=== PATIENT | female | born 1950 | race Caucasian/White ===

== ENCOUNTER → 2019-09-08 14:18 | Outpatient (BNVA) | payer MEDICARE, SELFPAY | PROVIDERS: Family Provider Registered Nurse; Visit Provider Registered Nurse | DX: I10 Essential (primary) hypertension (principal) | CPT/HCPCS: 80053; 80061; 85025 ==

== ENCOUNTER → 2020-09-06 09:48 | Outpatient (BNVA) | payer MEDICARE, SELFPAY | PROVIDERS: Family Provider Registered Nurse; Visit Provider Registered Nurse | DX: I10 Essential (primary) hypertension (principal) | CPT/HCPCS: 80053; 80061; 85025 ==

== ENCOUNTER → 2020-09-19 10:11 | Outpatient (BNVA) | payer MEDICARE, SELFPAY | PROVIDERS: Family Provider Registered Nurse; Visit Provider Registered Nurse | DX: D72.829 Elevated white blood cell count, unspecified (principal); I10 Essential (primary) hypertension | CPT/HCPCS: 85025 ==

== ENCOUNTER → 2020-09-29 10:30 | Outpatient (BNVA) | payer MEDICARE, SELFPAY | PROVIDERS: Family Provider Registered Nurse; Visit Provider Registered Nurse | DX: D72.829 Elevated white blood cell count, unspecified (principal) | CPT/HCPCS: 80500; 85007; 85027 ==

== ENCOUNTER 2020-10-18 09:27 | Outpatient (CLI) | payer MEDICARE, SELFPAY ==
[2020-10-18 10:07] LABS: Hematocrit 39.9 % (37.0-47.0); Hemoglobin 13.2 g/dL (11.5-15.3); Mean Corpuscular HGB Conc 33.1 g/dL (30.0-36.0); Mean Corpuscular Hemoglobin 30.3 pg (28.0-34.0); Mean Corpuscular Volume 91.7 fL (81-99); Platelet Count 249 10^3/cmm (130-400); Red Blood Count 4.35 10^6/uL (4.1-5.3); Red Cell Distribution Width 12.5 % (12.1-15.1); White Blood Count 19.8 10^3/uL (4.0-10.0)
[2020-10-18 10:46] LABS: Slide Review Slide Review Perform
[2020-10-18 10:52] LABS: Absolute Eosinophils 0.5 10^3/cmm (0.0-0.7); Eosinophils 3 %; Lymphocytes 66 %; Monocytes Absolute 0.2 10^3/cmm (0.1-0.6); Platelet Estimate Normal (Normal); Segmented Neutrophils 20 %; Total Cells Counted 100 (0-100)
[2020-10-18 12:42] LABS: LAB Peripheral Smear Sent for Review
--- NOTE | 2020-10-18 13:38 | ONC CON_ITS ---
Dr. Cano New Patient Note Patient: Maryuri Naylor Unit #: [id number]: 1950 Dicatated By: Solomon Cano M.D.Date of Visit: Oct 18, 2020 Onc MED New Patient/Consult Referring Physician: MARGE ADLER A.P.N. History of Present Illness: Ms. Maryuri Naylor, is a 70-year-old female with no significant past medical history has been following by PMD on a yearly basis and her routine/yearly follow-up labs done on September 06, 2020 showed white blood count 17.2 hemoglobin 12.4 hematocrit 37.4 platelets 254,000 differential shows lymphocytes 67.4% neutrophil 19.7% absolute lymphocyte count was 11,600, lab was repeated on September 19, 2020 showed white blood count 17.2, hemoglobin 12.1 hematocrit 37.8 platelets 240,000 with absolute lymphocyte count 10,400 and repeated lab on September 29, 2020 shows white blood count 16.1 hemoglobin 12.5 hematocrit 37.6 platelets 231,000 with lymphocytes 61%. Patient was referred to hematology clinic for evaluation Patient denies any night sweats, denies any recurrent fever denies any weight loss, denies any peripheral lymphadenopathy or abdominal fullness. Denies any recent viral or bacterial infection. Denies any overseas trip denies any new medication, appetite is good, no nausea or vomiting, no diarrhea or constipation, no jaundice, no melena or hematochezia or hemoptysis or hematemesis., No nosebleeds or gum bleed. Past Medical History: Ms. Naylor's medical history consists of hypertension. Past Surgical History: There is no documented surgical history. Medications: hydroCHLOROthiazide 1 Tablet (of 25 mg) Oral daily, Lisinopril-hydroCHLOROthiazide 1 Tablet (of 20-12.5 mg) Oral daily Allergies: Sulfa Antibiotics Social History: Ms. Naylor is . Ms. Naylor no longer smokes. She has no history of drinking. Family History: Ms. Naylor's mother at age 93. Ms. Naylor's father at age 66: stroke. Ms. Naylor has 2 brothers: 2 alive. Review Of Symptoms: Review of Systems is not available for this patient. Vital Signs: Performed on Oct 18, 2020 11:17: 0, 24.16, 1.64 sq.m, 63 in, 98 %, 96 /min, 17 /min, 141/86 mm(hg) (HIGH), 97.5 F (LOW), and 136.4 lbs (HIGH). Performance Status: 0 - Fully active, able to carry on all predisease activities without restrictions. (ECOG) Physical Examination: ENMT - No mouth sores, no thrush, no jaundice, no cervical/supraclavicular/axillary lymphadenopathy, Respiratory - Lungs are clear to auscultation, Cardiovascular - Regular rate and rhythm of heart, Abdomen - Soft, bowel sounds present, Extremities - No visible edema or rash. Lab/Imaging: Most recent lab results are not available for this patient. Impression: Leukocytosis/lymphocytosis, most likely due to lymphoproliferative disorder like CLL or small lymphocytic lymphoma with cellular phase or atypical lymphocytosis or recovery from viral infection but less likely Essential hypertension Plan: Patient regarding her labs white blood count 19.8 hemoglobin 13.2 hematocrit 39.9 platelets 249,000 absolute lymphocyte count 15,000 Clinically, patient is doing well with no B symptoms, her recently done CBC and repeated today confirmed leukocytosis/lymphocytosis most likely due to lymphoproliferative disorder like CLL or small lymphocytic lymphoma with a cellular phase or recovery from viral infection but less likely. At this point we will proceed with whole blood flow cytometry as on exam there is no evidence of peripheral lymphadenopathy or organomegaly. Patient return to clinic in 2 weeks with CBC and with whole blood flow cytometry to discuss further planning. Signed By: Solomon Cano M.D. <<Signature on File>>
[2020-11-15 09:18] LABS: Miscellaneous Test See Scanned Lab Rpt
== END 2020-10-18 09:28 | disposition home or self-care (01) ==
PROVIDERS: PCP Registered Nurse; Visit Provider Internal Medicine Hematology & Oncology
DX: D72.820 Lymphocytosis (symptomatic) (principal); I10 Essential (primary) hypertension; Z79.899 Other long term (current) drug therapy
CPT/HCPCS: 36415; 80500; 85007; 85025; 88184; 88185; 99205

== ENCOUNTER 2020-11-06 13:22 | Outpatient (CLI) | payer MEDICARE, SELFPAY ==
[2020-11-06 14:10] LABS: Basophils # 0.1 10^3/uL (0.0-0.1); Basophils % 0.6 %; Eosinophils # 0.2 10^3/uL (0.0-0.8); Eosinophils % 0.7 %; Hematocrit 37.5 % (37.0-47.0); Hemoglobin 12.4 g/dL (11.5-15.3); Lymphocytes # 13.2 10^3/uL (0.8-4.8); Lymphocytes % 60.9 %; Mean Corpuscular HGB Conc 33.1 g/dL (30.0-36.0); Mean Corpuscular Hemoglobin 30.8 pg (28.0-34.0); Mean Corpuscular Volume 93.3 fL (81-99); Mean Platelet Volume 10.3 fL (7.4-10.4); Monocytes # 4.1 10^3/uL (0.2-0.9); Monocytes % 18.7 %; Neutrophils % 18.9 %; Nucleated Red Blood Cells % 0 %; Platelet Count 240 10^3/cmm (130-400); Red Blood Count 4.02 10^6/uL (4.1-5.3); Red Cell Distribution Width 12.5 % (12.1-15.1); White Blood Count 21.7 10^3/uL (4.0-10.0)
[2020-11-06 15:13] LABS: Slide Review Slide Review Perform
--- NOTE | 2020-11-06 16:36 | ONC FU_ITS ---
Dr. Cano follow up note Patient: Maryuri Naylor Unit #: [id number]: 1950 Dicatated By: Solomon Cano M.D.Date of Visit:November 06, 2020 Onc Med Follow-up/Prog Note History of Present Illness: Ms. Maryuri Naylor, is a 70-year-old female with no significant past medical history has been following by PMD on a yearly basis and her routine/yearly follow-up labs done on September 06, 2020 showed white blood count 17.2 hemoglobin 12.4 hematocrit 37.4 platelets 254,000 differential shows lymphocytes 67.4% neutrophil 19.7% absolute lymphocyte count was 11,600, lab was repeated on September 19, 2020 showed white blood count 17.2, hemoglobin 12.1 hematocrit 37.8 platelets 240,000 with absolute lymphocyte count 10,400 and repeated lab on September 29, 2020 shows white blood count 16.1 hemoglobin 12.5 hematocrit 37.6 platelets 231,000 with lymphocytes 61%. Patient was referred to hematology clinic for evaluation Whole blood flow cytometry done on October 13, 2020 showed CD5 positive monotypic B-cell population, suggestive of atypical chronic lymphocytic leukemia/small lymphocytic lymphoma Patient denies any night sweats, denies any recurrent fever denies any weight loss, denies any peripheral lymphadenopathy or abdominal fullness. Denies any recent viral or bacterial infection. Denies any overseas trip denies any new medication, appetite is good, no nausea or vomiting, no diarrhea or constipation, no jaundice, no melena or hematochezia or hemoptysis or hematemesis., No nosebleeds or gum bleed. Came for follow-up, denies any specific complaints, no fever chills, no nausea or vomiting no diarrhea or constipation, no night sweats, no weight loss, no recurrent fever, no peripheral lymphadenopathy Medications: hydroCHLOROthiazide 1 Tablet (of 25 mg) Oral daily, Lisinopril-hydroCHLOROthiazide 1 Tablet (of 20-12.5 mg) Oral daily Allergies: Sulfa Antibiotics Review of Systems: Review of Systems is not available for this patient. Vital Signs: Performed on November 06, 2020 14:40 Height - 63.00 in Weight - 138.0 lbs (HIGH) BSA - 1.65 sq.m BMI - 24.45 Temperature - 97.4 F (LOW) Pulse - 77 /min Respiration - 17 /min BP - 115/58 mm(hg) O2 Sat - 98 % Pain - 0 Performance Status: 0 - Fully active, able to carry on all predisease activities without restrictions. (ECOG) Physical Examination: ENMT - No mouth sores, no thrush, no jaundice no cervical lymphadenopathy, Respiratory - Lungs are clear to auscultation, Cardiovascular - Regular rate and rhythm of heart, Abdomen - Soft, bowel sounds present no organomegaly, Extremities - No visible edema or rash. Lab/Imaging: Most recent lab results are not available for this patient. Impression: CD5 positive monotypic B-cell population suggestive of atypical CLL or small lymphocytic lymphoma with cellular phase , Whole blood flow cytometry done on October 13, 2020 showed CD5 positive monotypic B-cell population suggestive of atypical chronic lymphocytic leukemia, mantle cell lymphoma is not favored, hairy cell markers are negative Essential hypertension Plan: Discussed with patient regarding her labs white blood count 21.7 hemoglobin 12.4 hematocrit 37.5 platelets 240,000 absolute lymphocyte count 13,200, whole blood flow cytometry confirmed CD5 positive monotypic B-cell population suggestive of atypical CLL/small lymphocytic lymphoma, mantle cell lymphoma is not favored hairy cell markers are negative. Clinically, patient doing well with no new signs symptom, no B symptoms, no peripheral lymphadenopathy, her whole blood flow cytometry confirmed atypical CLL, at this point ,we will proceed with Staging and prognostic work-up with cytogenetics/CLL prognostic profile including 17p testing and also consider CT scan of neck chest abdomen pelvis and then she will return to clinic in 1 month for further discussion and evaluation. Signed By: Solomon Cano M.D. <<Signature on File>>
== END 2020-11-06 13:23 | disposition home or self-care (01) ==
LOC: ONCMED 13:24
PROVIDERS: PCP Registered Nurse; Visit Provider Internal Medicine Hematology & Oncology
DX: D72.820 Lymphocytosis (symptomatic) (principal); I10 Essential (primary) hypertension; Z79.899 Other long term (current) drug therapy
CPT/HCPCS: 36415; 85025; 99214

== ENCOUNTER 2020-11-24 12:49 | Outpatient (CLI) | payer MEDICARE, SELFPAY ==
--- NOTE | 2020-11-24 13:06 | CT_ITS ---
WS: [id number] CT NECK WITH CONTRAST HISTORY: Leukocytosis. TECHNIQUE: Contiguous 5 mm axial images are performed through the neck with intravenous contrast. Sag ittal and coronal reformats are also submitted. All CT scans at [facility] use at least o ne of these dose optimization techniques: automated exposure control; mA and/or kV adjustment per pat ient size (includes targeted exams where dose is matched to clinical indication); or iterative recons truction. CONTRAST: CONTRAST: Omnipaque 300; 95 mL IV. DLP: 760.58 mGycm COMPARISON: None available. Nasopharynx, oropharynx, hypopharynx and larynx are unremarkable. No soft tissue masses or abnormal e nhancement. Torus tubarius and fossa of Rosenmuller and parapharyngeal fat are normal. There are several small bilateral cervical chain lymph nodes. These lymph nodes are subcentimeter and majority have a normal visible fatty hilum. Lymph nodes are level 1, level 2, level 3 level 4 and le narinder 5. Largest lymph nodes are approximately 6 mm in diameter. Thyroid gland and salivary glands are normally enhancing with no masses. Mild anterior wedging of C7 and T1 and T4. No osteoblastic or osteolytic disease. Visualized portions of the skull base demonstrate no abnormalities. Orbits and globes are within norm al limits. No soft tissue masses. Visualized paranasal sinuses and mastoid air cells are normal. Lung apices are clear. CT/CT neck w con* [id number] IMPRESSION: 1. No neck mass identified. 2. Several small bilateral cervical chain lymph nodes. Lymph node nodes appear nonpathologic.
--- NOTE | 2020-11-24 13:06 | CT_ITS ---
WS: [id number] CT CHEST, ABDOMEN AND PELVIS WITH CONTRAST HISTORY: LEUKOCYTOSIS TECHNIQUE: Contiguous 5 mm axial imaging performed through the chest, abdomen and pelvis with IV cont rast, oral contrast has been provided. Coronal and sagittal reformats chest. Coronal and sagittal ref ormats through the abdomen and pelvis. All CT scans at [facility] use at least one of the se dose optimization techniques: automated exposure control; mA and/or kV adjustment per patient size (includes targeted exams where dose is matched to clinical indication); or iterative reconstruction. CONTRAST: Omnipaque 300; 75 mL IV. DLP: 1976.92 mGycm COMPARISON: None available. Chest CT: Lungs are clear. No mediastinal or hilar adenopathy. Mild atherosclerosis aorta. Normal siz e pulmonary artery. Heart is normal size. No pericardial pleural effusions. No chest wall abnormality. There are a few small benign-appearing axillary lymph nodes which are less than a centimeter. No hiatal hernia. Abdomen CT: Liver, spleen and gallbladder are negative. No splenomegaly. Common bile duct is top norm al at 8 mm at the pancreatic head. Pancreas is otherwise negative. No adrenal mass. No renal obstruct ion or mass. No mesenteric adenopathy or fluid. Mild atherosclerosis aorta with no aneurysm. Normal appendix. Mild diffuse fecal retention no wall thickening or acute inflammatory changes. Pelvic CT: Moderately distended urinary bladder. No free fluid or adenopathy in the pelvis. There is mild thickening of the endometrium towards the fundus. Uterus is small caliber. 00 no osteoblastic or osteolytic bone disease. Small Schmorl's nodes defects are noted at several lev els in the thoracic spine. CT/CT chest abd pel w con* IMPRESSION: 1. No identifiable chest, abdomen or pelvic lymphadenopathy. 2. Normal size spleen. 3. Mildly thickened endometrium. Consider follow-up transvaginal imaging to be tter evaluate the endometrium and uterus. 4. Atherosclerosis aorta.
[2020-11-24] MEDS: iohexol 300 mg/mL 50 mL Btl PO (13:21)
[2020-11-24 13:53] LABS: Blood Urea Nitrogen 19 mg/dL (8-23); Glomerular Filtration Rate 82.7 mL/min (90-130)
[2020-11-24] MEDS: iohexol 300 mg/mL 100 mL Btl IV ×2 (14:36→14:37)
== END 2020-11-24 12:50 | disposition home or self-care (01) ==
LOC: RADWPI 12:51
PROVIDERS: PCP Registered Nurse; Visit Provider Internal Medicine Hematology & Oncology
DX: D72.829 Elevated white blood cell count, unspecified (principal); I70.0 Atherosclerosis of aorta; R93.89 Abnormal findings on diagnostic imaging of other specified body structures
CPT/HCPCS: 70491; 71260; 74177; 82565; 84520; Q9967

== ENCOUNTER 2020-12-21 11:21 | Outpatient (CLI) | payer MEDICARE, SELFPAY ==
[2020-12-21 12:20] LABS: Basophils # 0.1 10^3/uL (0.0-0.1); Basophils % 0.6 %; Eosinophils # 0.1 10^3/uL (0.0-0.8); Eosinophils % 0.8 %; Hematocrit 36.5 % (37.0-47.0); Hemoglobin 12.1 g/dL (11.5-15.3); Lymphocytes # 10.5 10^3/uL (0.8-4.8); Lymphocytes % 62.1 %; Mean Corpuscular HGB Conc 33.2 g/dL (30.0-36.0); Mean Corpuscular Hemoglobin 30.3 pg (28.0-34.0); Mean Corpuscular Volume 91.3 fL (81-99); Mean Platelet Volume 10.2 fL (7.4-10.4); Monocytes # 3.2 10^3/uL (0.2-0.9); Monocytes % 18.8 %; Neutrophils # 2.95 10^3/uL (1.8-7.7); Neutrophils % 17.4 %; Nucleated Red Blood Cells % 0 %; Platelet Count 206 10^3/cmm (130-400); Positive M 1; Red Cell Distribution Width 12.7 % (12.1-15.1); White Blood Count 16.9 10^3/uL (4.0-10.0)
[2020-12-21 12:48] LABS: Alanine Aminotransferase 9 U/L (0-33); Albumin Level 4.2 g/dL (3.5-5.2); Alkaline Phosphatase 85 IU/L (35-105); Anion Gap 13.9 (5-19); Aspartate Amino Transferase 15 U/L (0-32); Blood Urea Nitrogen 20 mg/dL (8-23); Calcium 8.9 mg/dL (8.5-10.5); Carbon Dioxide 27 mmol/L (22-29); Chloride 99 mmol/L (98-107); Globulin 2.3 g/dL (1.3-4.6); Glomerular Filtration Rate 70.9 mL/min (90-130); Glucose 102 mg/dL (65-115); Osmolality Calculated 285 mOsm/kg (285-295); Potassium 3.9 mmol/L (3.5-5.1); Sodium 136 mmol/L (136-145); Total Bilirubin 0.3 mg/dL (0.15-1.2); Total Protein 6.5 g/dL (6.6-8.7)
[2020-12-21 12:52] LABS: Slide Review Slide Review Perform
--- NOTE | 2020-12-21 15:40 | ONC FU_ITS ---
Dr. Cano follow up note Patient: Maryuri Naylor Unit #: [id number]: 1950 Dicatated By: Solomon Cano M.D.Date of Visit:Dec 21, 2020 Onc Med Follow-up/Prog Note History of Present Illness: Ms. Maryuri Naylor, is a 70-year-old female with no significant past medical history has been following by PMD on a yearly basis and her routine/yearly follow-up labs done on September 06, 2020 showed white blood count 17.2 hemoglobin 12.4 hematocrit 37.4 platelets 254,000 differential shows lymphocytes 67.4% neutrophil 19.7% absolute lymphocyte count was 11,600, lab was repeated on September 19, 2020 showed white blood count 17.2, hemoglobin 12.1 hematocrit 37.8 platelets 240,000 with absolute lymphocyte count 10,400 and repeated lab on September 29, 2020 shows white blood count 16.1 hemoglobin 12.5 hematocrit 37.6 platelets 231,000 with lymphocytes 61%. Patient was referred to hematology clinic for evaluation Whole blood flow cytometry done on October 13, 2020 showed CD5 positive monotypic B-cell population, suggestive of atypical chronic lymphocytic leukemia/small lymphocytic lymphoma Patient denies any night sweats, denies any recurrent fever denies any weight loss, denies any peripheral lymphadenopathy or abdominal fullness. Denies any recent viral or bacterial infection. Denies any overseas trip denies any new medication, appetite is good, no nausea or vomiting, no diarrhea or constipation, no jaundice, no melena or hematochezia or hemoptysis or hematemesis., No nosebleeds or gum bleed. CT scan of neck done on November 24, 2020 shows subcentimeter bilateral cervical lymph nodes largest lymph node is 6 mm in diameter and CT scan of chest abdomen pelvis showed no identifiable chest abdomen pelvis lymphadenopathy. Normal-sized spleen. Mildly thickened endometrium Came for follow-up, denies any specific complaints, no fever chills, no nausea or vomiting, no diarrhea or constipation, no melena or hematochezia, no hemoptysis or hematemesis, no night sweats, no weight loss, no peripheral lymphadenopathy, no abdominal fullness Medications: hydroCHLOROthiazide 1 Tablet (of 25 mg) Oral daily, Lisinopril-hydroCHLOROthiazide 1 Tablet (of 20-12.5 mg) Oral daily Allergies: Sulfa Antibiotics Review of Systems: Review of Systems is not available for this patient. Vital Signs: Performed on Dec 21, 2020 13:39 Height - 63.00 in Weight - 138.2 lbs (HIGH) BSA - 1.65 sq.m BMI - 24.48 Temperature - 96.4 F (LOW) Pulse - 93 /min Respiration - 18 /min BP - 114/73 mm(hg) O2 Sat - 98 % Pain - 0 Fatigue - 5 Performance Status: 0 - Fully active, able to carry on all predisease activities without restrictions. (ECOG) Physical Examination: ENMT - No mouth sores, no thrush, no jaundice, no lymphadenopathy, Respiratory - Lungs are clear to auscultation, Cardiovascular - Regular rate and rhythm of heart, Abdomen - Soft, bowel sounds present, Extremities - No visible edema. Lab/Imaging: Most recent lab results are not available for this patient. Impression: CD5 positive monotypic B-cell population suggestive of atypical CLL or small lymphocytic lymphoma with cellular phase , Whole blood flow cytometry done on October 13, 2020 showed CD5 positive monotypic B-cell population suggestive of atypical chronic lymphocytic leukemia, mantle cell lymphoma is not favored, hairy cell markers are negative CT scan of neck chest abdomen pelvis showed shotty subcentimeter bilateral cervical lymphadenopathy, largest is 6 mm., No identifiable chest, abdominal and pelvic lymphadenopathy, spleen is normal size mildly thickened endometrium CLL prognostic profile is pending Essential hypertension Plan: Discussed with patient regarding her labs white blood count 16.9 hemoglobin 12.1 g medical 36.5 platelets 206,000 CMP within normal limits, CT scan of chest abdomen pelvis shows no lymphadenopathy, spleen size normal, CT scan of neck showed shotty subcentimeter bilateral cervical lymphadenopathy and endometrial thickening Clinically, patient doing well with no new signs symptoms, no B symptoms or follow-up CT scan of chest abdomen pelvis shows no central lymphadenopathy no organomegaly CT scan of neck shows bilateral subcentimeter lymphadenopathy. CLL prognostic profile was ordered, somehow was not done previously and again reordered today. Clinically, patient has CLL stage 0 and no further work-up rather observation, she will return to clinic in 4 months with CBC CMP and LDH, patient was advised to call us in case she has recurrent fever, drenching night sweats, weight loss. As far as incidental finding seen on CT scan of chest abdomen pelvis which showed thickening of uterus lining, will refer her to [facility] for evaluation, as per patient she used to follow with [facility] on regular basis tell about 6 years ago. Signed By: Solomon Cano M.D. <<Signature on File>>
[2021-01-10 14:05] LABS: Miscellaneous Test See Scanned Lab Rpt
== END 2020-12-21 11:22 | disposition home or self-care (01) ==
LOC: ONCMED 11:23
PROVIDERS: PCP Registered Nurse; Visit Provider Internal Medicine Hematology & Oncology
DX: C91.10 Chronic lymphocytic leukemia of B-cell type not having achieved remission (principal); I10 Essential (primary) hypertension; Z79.899 Other long term (current) drug therapy; Z92.21 Personal history of antineoplastic chemotherapy
CPT/HCPCS: 36415; 80053; 85025; 88367; 88374; 99214

== ENCOUNTER → 2021-02-21 08:49 | Outpatient (BNVA) | payer MEDICARE, SELFPAY | PROVIDERS: PCP Registered Nurse; Visit Provider Obstetrics & Gynecology | DX: R93.89 Abnormal findings on diagnostic imaging of other specified body structures (principal) | CPT/HCPCS: 76830 ==

== ENCOUNTER 2021-05-09 11:24 | Outpatient (CLI) | payer MEDICARE, SELFPAY ==
[2021-05-09 12:07] LABS: Hematocrit 37.2 % (37.0-47.0); Hemoglobin 12.4 g/dL (11.5-15.3); Mean Corpuscular HGB Conc 33.3 g/dL (30.0-36.0); Mean Corpuscular Hemoglobin 30.5 pg (28.0-34.0); Mean Corpuscular Volume 91.6 fl (81-99); Mean Platelet Volume 9.8 fL (7.4-10.4); Platelet Count 283 10^3/cmm (130-400); Red Blood Count 4.06 10^6/uL (4.1-5.3); Red Cell Distribution Width 12.8 % (12.1-15.1); White Blood Count 22.7 10^3/uL (4.0-10.0)
[2021-05-09 12:56] LABS: Absolute Eosinophils 0.4 10^3/cmm (0.0-0.7); Absolute Segmented Neutrophil 6.1 10/cmm (1.6-7.1); Band Neutrophils Absolute 0.5 10^3/cmm (0.0-1.2); Eosinophils 2 %; Segmented Neutrophils 27 %; Total Cells Counted 100 (0-100)
[2021-05-09 12:57] LABS: Absolute Neutrophil 6.6 10^3/cmm (1.4-6.5); Lymphocytes 53 %; Lymphocytes Absolute 14.3 10^3/cmm (1.2-3.4); Monocytes Absolute 1.1 10^3/cmm (0.1-0.6); Platelet Estimate Normal (Normal)
[2021-05-09 12:58] LABS: Smudge Cells 2+; Tear Drop Cells Trace
[2021-05-09 13:09] LABS: Alanine Aminotransferase 10 U/L (0-33); Albumin Level 4.1 g/dL (3.5-5.2); Alkaline Phosphatase 92 IU/L (35-105); Anion Gap 11.9 (5-19); Aspartate Amino Transferase 14 U/L (0-32); Blood Urea Nitrogen 16 mg/dL (8-23); Calcium 8.8 mg/dL (8.5-10.5); Carbon Dioxide 28 mmol/L (22-29); Chloride 103 mmol/L (98-107); Globulin 2.5 g/dL (1.3-4.6); Glomerular Filtration Rate 61.9 mL/min (90-130); Glucose 99 mg/dL (65-115); Lactate Dehydrogenase 211 U/L (135-214); Osmolality Calculated 289 mOsm/kg (285-295); Potassium 3.9 mmol/L (3.5-5.1); Sodium 139 mmol/L (136-145); Total Bilirubin 0.2 mg/dL (0.15-1.2); Total Protein 6.6 g/dL (6.6-8.7)
--- NOTE | 2021-05-09 16:18 | ONC FU_ITS ---
Dr. Cano follow up note Patient: Maryuri Naylor Unit #: [id number]: 1950 Dicatated By: Solomon Cano M.D.Date of Visit:May 09, 2021 Onc Med Follow-up/Prog Note History of Present Illness: Ms. Maryuri Naylor, is a 70-year-old female with no significant past medical history has been following by PMD on a yearly basis and her routine/yearly follow-up labs done on September 06, 2020 showed white blood count 17.2 hemoglobin 12.4 hematocrit 37.4 platelets 254,000 differential shows lymphocytes 67.4% neutrophil 19.7% absolute lymphocyte count was 11,600, lab was repeated on September 19, 2020 showed white blood count 17.2, hemoglobin 12.1 hematocrit 37.8 platelets 240,000 with absolute lymphocyte count 10,400 and repeated lab on September 29, 2020 shows white blood count 16.1 hemoglobin 12.5 hematocrit 37.6 platelets 231,000 with lymphocytes 61%. Patient was referred to hematology clinic for evaluation Whole blood flow cytometry done on October 13, 2020 showed CD5 positive monotypic B-cell population, suggestive of atypical chronic lymphocytic leukemia/small lymphocytic lymphoma Patient denies any night sweats, denies any recurrent fever denies any weight loss, denies any peripheral lymphadenopathy or abdominal fullness. Denies any recent viral or bacterial infection. Denies any overseas trip denies any new medication, appetite is good, no nausea or vomiting, no diarrhea or constipation, no jaundice, no melena or hematochezia or hemoptysis or hematemesis., No nosebleeds or gum bleed. CT scan of neck done on November 24, 2020 shows subcentimeter bilateral cervical lymph nodes largest lymph node is 6 mm in diameter and CT scan of chest abdomen pelvis showed no identifiable chest abdomen pelvis lymphadenopathy. Normal-sized spleen. Mildly thickened endometrium Came for follow-up, denies any specific complaints, no fever chills, no nausea or vomiting, no diarrhea or constipation, no melena hematochezia, no hemoptysis hematemesis, no jaundice, no night sweats, no weight loss, no recurrent fever, no abdominal fullness Medications: hydroCHLOROthiazide 1 Tablet (of 25 mg) Oral daily, Lisinopril-hydroCHLOROthiazide 1 Tablet (of 20-12.5 mg) Oral daily Allergies: Sulfa Antibiotics Review of Systems: Review of Systems is not available for this patient. Vital Signs: Performed on May 09, 2021 14:59 Height - 63.00 in Weight - 137.6 lbs (LOW) BSA - 1.65 sq.m BMI - 24.37 Temperature - 96.9 F (LOW) Pulse - 88 /min Respiration - 18 /min BP - 120/75 mm(hg) O2 Sat - 98 % Pain - 0 Fatigue - 4 Performance Status: 0 - Fully active, able to carry on all predisease activities without restrictions. (ECOG) Physical Examination: ENMT - No mouth sores, no thrush, no jaundice mild cervical/bilateral axillary lymphadenopathy, Respiratory - Lungs are clear to auscultation, Cardiovascular - Regular rate and rhythm of heart, Abdomen - Soft, bowel sounds present, Extremities - No visible edema. Lab/Imaging: Most recent lab results are not available for this patient. Impression: CD5 positive monotypic B-cell population suggestive of atypical CLL or small lymphocytic lymphoma with cellular phase , Whole blood flow cytometry done on October 13, 2020 showed CD5 positive monotypic B-cell population suggestive of atypical chronic lymphocytic leukemia, mantle cell lymphoma is not favored, hairy cell markers are negative CT scan of neck chest abdomen pelvis showed shotty subcentimeter bilateral cervical lymphadenopathy, largest is 6 mm., No identifiable chest, abdominal and pelvic lymphadenopathy, spleen is normal size mildly thickened endometrium CLL prognostic profile is pending Essential hypertension Plan: Discussed with patient regarding her labs white blood count 22.7 hemoglobin 12.4 g hematocrit 37.2 platelets 283,000 ANC 6600 CMP within normal limits including LDH Clinically, patient doing well with no new signs symptom suggestive of disease progression, her follow-up CBC shows mild lymphocytosis/leukocytosis with normal hemoglobin and platelet count. On exam she has persistent shotty cervical/bilateral axillary lymphadenopathy., Last time her CLL prognostic profile was ordered but it was not done so we will reconsider. She will return to clinic in 3 months with CBC CMP and LDH Patient has seen [facility] [employer] [employer] Dr. Weiss for uterine abnormality, as per patient her Uterine ultrasound was unremarkable and she was told nothing to worry. Signed By: Solomon Cano M.D. <<Signature on File>>
== END 2021-05-09 11:25 | disposition home or self-care (01) ==
LOC: ONCMED 11:26
PROVIDERS: PCP Registered Nurse; Visit Provider Internal Medicine Hematology & Oncology
DX: Z08 Encounter for follow-up examination after completed treatment for malignant neoplasm (principal); Z85.72 Personal history of non-Hodgkin lymphomas; I10 Essential (primary) hypertension; Z79.899 Other long term (current) drug therapy
CPT/HCPCS: 36415; 80053; 81263; 82232; 83615; 85007; 85025; 88184; 88185; 88264; 88271; 88367; 88374; 99214

== ENCOUNTER 2021-08-06 12:53 | Outpatient (CLI) | payer MEDICARE, SELFPAY ==
[2021-08-06 13:48] LABS: Basophils # 0.1 10^3/uL (0.0-0.1); Basophils % 0.5 %; Eosinophils # 0.1 10^3/uL (0.0-0.8); Eosinophils % 0.4 %; Hematocrit 37.2 % (37.0-47.0); Hemoglobin 12.2 g/dL (11.5-15.3); Lymphocytes % 48.8 %; Mean Corpuscular HGB Conc 32.8 g/dL (30.0-36.0); Mean Corpuscular Hemoglobin 30.5 pg (28.0-34.0); Mean Platelet Volume 10.1 fL (7.4-10.4); Monocytes # 7.3 10^3/uL (0.2-0.9); Monocytes % 32.5 %; Neutrophils # 3.84 10^3/uL (1.8-7.7); Nucleated Red Blood Cells % 0 %; Platelet Count 228 10^3/cmm (130-400); Red Cell Distribution Width 12.7 % (12.1-15.1); White Blood Count 22.5 10^3/uL (4.0-10.0)
[2021-08-06 14:12] LABS: Alanine Aminotransferase 13 U/L (0-33); Albumin Level 4.5 g/dL (3.5-5.2); Alkaline Phosphatase 98 IU/L (35-105); Anion Gap 14.3 (5-19); Aspartate Amino Transferase 16 U/L (0-32); Blood Urea Nitrogen 13 mg/dL (8-23); Calcium 8.7 mg/dL (8.5-10.5); Carbon Dioxide 27 mmol/L (22-29); Chloride 100 mmol/L (98-107); Globulin 2.2 g/dL (1.3-4.6); Glucose 93 mg/dL (65-115); Osmolality Calculated 284 mOsm/kg (285-295); Potassium 4.3 mmol/L (3.5-5.1); Sodium 137 mmol/L (136-145); Total Bilirubin 0.2 mg/dL (0.15-1.2); Total Protein 6.7 g/dL (6.6-8.7)
[2021-08-06 14:23] LABS: Slide Review Slide Review Perform
== END 2021-08-06 12:54 | disposition home or self-care (01) ==
LOC: ONCMED 12:57
PROVIDERS: PCP Registered Nurse; Visit Provider Internal Medicine Hematology & Oncology
DX: D72.820 Lymphocytosis (symptomatic) (principal)
CPT/HCPCS: 36415; 80053; 85025

== ENCOUNTER 2021-08-07 11:12 | Outpatient (CLI) | payer MEDICARE, SELFPAY ==
--- NOTE | 2021-08-07 18:03 | ONC FU_ITS ---
Dr. Cano follow up note Patient: Maryuri Naylor Unit #: [id number]: 1950 Dicatated By: Solomon Cano M.D.Date of Visit:Aug 07, 2021 Onc Med Follow-up/Prog Note History of Present Illness: Ms. Maryuri Naylor, is a 71-year-old female with no significant past medical history has been following by PMD on a yearly basis and her routine/yearly follow-up labs done on September 06, 2020 showed white blood count 17.2 hemoglobin 12.4 hematocrit 37.4 platelets 254,000 differential shows lymphocytes 67.4% neutrophil 19.7% absolute lymphocyte count was 11,600, lab was repeated on September 19, 2020 showed white blood count 17.2, hemoglobin 12.1 hematocrit 37.8 platelets 240,000 with absolute lymphocyte count 10,400 and repeated lab on September 29, 2020 shows white blood count 16.1 hemoglobin 12.5 hematocrit 37.6 platelets 231,000 with lymphocytes 61%. 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 Denies any recent viral or bacterial infection. Denies any overseas trip denies any new medication, appetite is good, no nausea or vomiting, no diarrhea or constipation, no jaundice, no melena or hematochezia or hemoptysis or hematemesis., No nosebleeds or gum bleed. CT scan of neck done on November 24, 2020 shows subcentimeter bilateral cervical lymph nodes largest lymph node is 6 mm in diameter and CT scan of chest abdomen pelvis showed no identifiable chest abdomen pelvis lymphadenopathy. Normal-sized spleen. Mildly thickened endometrium Came for follow-up, denies any specific complaints, no fever chills, no nausea or vomiting, no diarrhea constipation, no night sweats, no recurrent fever, no weight loss, no abdominal fullness, no peripheral lymphadenopathy Medications: hydroCHLOROthiazide 1 Tablet (of 25 mg) Oral daily, Lisinopril-hydroCHLOROthiazide 1 Tablet (of 20-12.5 mg) Oral daily Allergies: Sulfa Antibiotics Review of Systems: Review of Systems is not available for this patient. Vital Signs: Performed on Aug 07, 2021 13:56 Height - 63.00 in Weight - 137.6 lbs BSA - 1.65 sq.m BMI - 24.37 Temperature - 97.8 F (LOW) Pulse - 83 /min Respiration - 16 /min BP - 120/72 mm(hg) O2 Sat - 97 % Pain - 0 Fatigue - 5 Performance Status: 0 - Fully active, able to carry on all predisease activities without restrictions. (ECOG) Physical Examination: ENMT - No mouth sores, no thrush, no jaundice, No cervical lymphadenopathy, Respiratory - Lungs are clear to auscultation, Cardiovascular - Regular rate and rhythm of heart, Abdomen - Soft, bowel sounds present, Extremities - No visible edema. Lab/Imaging: Most recent lab results are not available for this patient. Impression: CD5 positive monotypic B-cell population suggestive of atypical CLL or small lymphocytic lymphoma with cellular phase , Whole blood flow cytometry done on October 13, 2020 showed CD5 positive monotypic B-cell population suggestive of atypical chronic lymphocytic leukemia, mantle cell lymphoma is not favored, hairy cell markers are negative CT scan of neck chest abdomen pelvis showed shotty subcentimeter bilateral cervical lymphadenopathy, largest is 6 mm., No identifiable chest, abdominal and pelvic lymphadenopathy, spleen is normal size mildly thickened endometrium CLL prognostic profile confirmed FISH positive for 17p deletion,(Unfavorable) positive for ZAP 70,(Unfavorable) IGVH status, mutated (Favorable) Essential hypertension Plan: Discussed with patient regarding her labs white blood count 22.5, hemoglobin 12.2 hematocrit 37.2 platelets 228,000 CMP within normal limits Clinically, patient doing well with no new signs symptom suggestive of disease progression, no B symptoms, on exam no peripheral lymphadenopathy, no organomegaly, patient's CLL prognostic profile shows 17p deletion and positive for ZAP70, indicating aggressive disease but IGVH status mutated, indicating less aggressive disease or indolent disease. Her follow-up CBC shows stable, isolated mildly elevated leukocytosis/lymphocytosis, with a normal hemoglobin and platelet count and on exam no peripheral lymphadenopathy or organomegaly so we will continue to monitor and she will return to clinic in 6 months with CBC CMP and LDH Signed By: Solomon Cano M.D. <<Signature on File>>
== END 2021-08-07 11:13 | disposition home or self-care (01) ==
LOC: ONCMED 11:15
PROVIDERS: PCP Registered Nurse; Visit Provider Internal Medicine Hematology & Oncology
DX: C91.10 Chronic lymphocytic leukemia of B-cell type not having achieved remission (principal); I10 Essential (primary) hypertension
CPT/HCPCS: 99214

== ENCOUNTER 2022-02-01 11:18 | Oncology outpatient (recurring) (ONCR) | payer MEDICARE, SELFPAY ==
[2022-01-31 14:41] LABS: Alanine Aminotransferase 13 U/L (0-33); Albumin Level 4.1 g/dL (3.5-5.2); Alkaline Phosphatase 101 IU/L (35-105); Anion Gap 10.8 (5-19); Aspartate Amino Transferase 17 U/L (0-32); Blood Urea Nitrogen 18 mg/dL (8-23); Calcium 9.6 mg/dL (8.5-10.5); Carbon Dioxide 30 mmol/L (22-29); Chloride 103 mmol/L (98-107); Globulin 2.8 g/dL (1.3-4.6); Glucose 95 mg/dL (65-115); Lactate Dehydrogenase 154 U/L (135-214); Osmolality Calculated 292 mOsm/kg (285-295); Potassium 3.8 mmol/L (3.5-5.1); Sodium 140 mmol/L (136-145); Total Bilirubin 0.2 mg/dL (0.15-1.2); Total Protein 6.9 g/dL (6.6-8.7)
[2022-01-31 15:30] LABS: Basophils # 0.2 10^3/uL (0.0-0.1); Basophils % 0.5 %; Eosinophils # 0.1 10^3/uL (0.0-0.8); Eosinophils % 0.4 %; Hematocrit 39.7 % (37.0-47.0); Hemoglobin 12.9 g/dL (11.5-15.3); Lymphocytes # 20.1 10^3/uL (0.8-4.8); Lymphocytes % 61.2 %; Mean Corpuscular HGB Conc 32.5 g/dL (30.0-36.0); Mean Corpuscular Hemoglobin 30.2 pg (28.0-34.0); Mean Platelet Volume 10.1 fL (7.4-10.4); Monocytes # 7.1 10^3/uL (0.2-0.9); Monocytes % 21.6 %; Neutrophils # 5.28 10^3/uL (1.8-7.7); Neutrophils % 16.1 %; Nucleated Red Blood Cells % 0 %; Platelet Count 248 10^3/cmm (130-400); Positive M 1; Red Blood Count 4.27 10^6/uL (4.1-5.3); Red Cell Distribution Width 12.6 % (12.1-15.1)
[2022-01-31 17:38] LABS: White Blood Count 32.8 10^3/uL (4.0-10.0)
== END 2022-02-20 23:59 | disposition home or self-care (01) ==
PROVIDERS: PCP Registered Nurse; Visit Provider Internal Medicine Hematology & Oncology
DX: C91.10 Chronic lymphocytic leukemia of B-cell type not having achieved remission; I10 Essential (primary) hypertension
CPT/HCPCS: 36415; 80053; 83615; 85025; 99214; G0463

== ENCOUNTER 2022-08-07 12:31 | Oncology outpatient (recurring) (ONCR) | payer MEDICARE, SELFPAY ==
[2022-08-07 11:25] LABS: Hematocrit 34.5 % (37.0-47.0); Hemoglobin 11.7 g/dL (11.5-15.3); Mean Corpuscular HGB Conc 33.9 g/dL (30.0-36.0); Mean Corpuscular Hemoglobin 30.8 pg (28.0-34.0); Mean Corpuscular Volume 90.8 fl (81-99); Mean Platelet Volume 9.5 fL (7.4-10.4); Platelet Count 176 10^3/cmm (130-400); Red Cell Distribution Width 12.6 % (12.1-15.1); White Blood Count 30.1 10^3/uL (4.0-10.0)
[2022-08-07 11:58] LABS: Alanine Aminotransferase 10 U/L (0-33); Albumin Level 4.1 g/dL (3.5-5.2); Alkaline Phosphatase 107 U/L (35-105); Anion Gap 15.9 (5-19); Aspartate Amino Transferase 24 U/L (0-32); Blood Urea Nitrogen 17 mg/dL (8-23); Calcium 8.7 mg/dL (8.5-10.5); Carbon Dioxide 24 mmol/L (22-29); Chloride 101 mmol/L (98-107); Globulin 2.4 g/dL (1.3-4.6); Glucose 124 mg/dL (65-115); Osmolality Calculated 287 mOsm/kg (285-295); Potassium 3.9 mmol/L (3.5-5.1); Sodium 137 mmol/L (136-145); Total Bilirubin 0.2 mg/dL (0.15-1.2); Total Protein 6.5 g/dL (6.6-8.7)
[2022-08-07 12:09] LABS: Slide Review Slide Review Perform
[2022-08-07 12:10] LABS: Absolute Neutrophil 9.6 10^3/cmm (1.4-6.5); Absolute Segmented Neutrophil 9.6 10/cmm (1.6-7.1); Eosinophils 0 %; Lymphocytes 63 %; Lymphocytes Absolute 19.6 10^3/cmm (1.2-3.4); Monocytes Absolute 0.9 10^3/cmm (0.1-0.6); Platelet Estimate Normal (Normal); Segmented Neutrophils 32 %; Total Cells Counted 100 (0-100)
== END 2022-08-20 23:59 | disposition home or self-care (01) ==
PROVIDERS: Nurse Practitioner Family; PCP Registered Nurse; Visit Provider Internal Medicine Hematology & Oncology
DX: C91.10 Chronic lymphocytic leukemia of B-cell type not having achieved remission (principal)
CPT/HCPCS: 36415; 80053; 85007; 85025; 99214

== ENCOUNTER → 2022-12-19 10:08 | Outpatient (BNVA) | payer MEDICARE, SELFPAY | PROVIDERS: PCP Registered Nurse; Visit Provider Registered Nurse | DX: I10 Essential (primary) hypertension (principal) | CPT/HCPCS: 80053; 80061; 85007; 85025 ==

== ENCOUNTER → 2022-12-31 11:02 | Outpatient (BNVA) | payer MEDICARE, SELFPAY | PROVIDERS: PCP Registered Nurse; Visit Provider Registered Nurse | DX: D72.829 Elevated white blood cell count, unspecified (principal) | CPT/HCPCS: 85007; 85025 ==

== ENCOUNTER 2023-01-23 11:44 | Oncology outpatient (recurring) (ONCR) | payer MEDICARE, SELFPAY ==
[2023-01-23 12:46] LABS: Hematocrit 36.4 % (37.0-47.0); Hemoglobin 11.6 g/dL (11.5-15.3); Mean Corpuscular HGB Conc 31.9 g/dL (30.0-36.0); Mean Corpuscular Hemoglobin 29.5 pg (28.0-34.0); Mean Corpuscular Volume 92.6 fl (81-99); Mean Platelet Volume 9.7 fL (7.4-10.4); Platelet Count 181 10^3/cmm (130-400); Red Blood Count 3.93 10^6/uL (4.1-5.3); Red Cell Distribution Width 12.6 % (12.1-15.1)
[2023-01-23 13:05] LABS: Alanine Aminotransferase 36 U/L (0-33); Alkaline Phosphatase 133 U/L (35-105); Anion Gap 14.9 (5-19); Aspartate Amino Transferase 39 U/L (0-32); Blood Urea Nitrogen 15 mg/dL (8-23); Carbon Dioxide 26 mmol/L (22-29); Chloride 101 mmol/L (98-107); Globulin 2.8 g/dL (1.3-4.6); Glucose 93 mg/dL (65-115); Lactate Dehydrogenase 310 U/L (135-214); Osmolality Calculated 287 mOsm/kg (285-295); Potassium 3.9 mmol/L (3.5-5.1); Sodium 138 mmol/L (136-145); Total Bilirubin 0.2 mg/dL (0.15-1.2); Total Protein 6.8 g/dL (6.6-8.7)
[2023-01-23 13:25] LABS: Slide Review Slide Review Perform; White Blood Count 40.6 10^3/uL (4.0-10.0)
[2023-01-23 13:26] LABS: Absolute Neutrophil 7.3 10^3/cmm (1.4-6.5); Absolute Segmented Neutrophil 7.3 10/cmm (1.6-7.1); Eosinophils 0 %; Lymphocytes 50 %; Lymphocytes Absolute 32.9 10^3/cmm (1.2-3.4); Monocytes Absolute 0.4 10^3/cmm (0.1-0.6); Platelet Estimate Normal (Normal); Segmented Neutrophils 18 %; Total Cells Counted 100 (0-100)
[2023-01-23 13:27] LABS: Smudge Cells 3+
[2023-01-23 17:22] VITALS: BP 124/74; PULSE 96; RESP 17; TEMP 35.9; O2SAT 98
== END 2023-02-20 23:59 | disposition home or self-care (01) ==
PROVIDERS: PCP Registered Nurse; Visit Provider Nurse Practitioner Family
DX: C91.10 Chronic lymphocytic leukemia of B-cell type not having achieved remission (principal)
CPT/HCPCS: 36415; 80053; 83615; 85007; 85025; 99214

== ENCOUNTER → 2023-03-12 10:37 | Outpatient (BNVA) | payer MEDICARE, SELFPAY | PROVIDERS: PCP Registered Nurse; Visit Provider Registered Nurse | DX: I10 Essential (primary) hypertension (principal); R60.9 Edema, unspecified | CPT/HCPCS: 80053; 83880 ==

== ENCOUNTER 2023-03-24 13:19 | Oncology outpatient (recurring) (ONCR) | payer MEDICARE, SELFPAY ==
[2023-03-24 13:24] VITALS: BP 91/51; PULSE 72; RESP 16; TEMP 36.8; O2SAT 97
[2023-03-24 13:40] LABS: Basophils % 0.1 %; Eosinophils # 0.1 10^3/uL (0.0-0.8); Eosinophils % 0.3 %; Hematocrit 31.8 % (36-47); Lymphocytes # 31.2 10^3/uL (0.8-4.8); Lymphocytes % 78.4 %; Mean Corpuscular Hemoglobin 29.9 pg (27-33); Mean Corpuscular Volume 90.6 fl (85-98); Mean Platelet Volume 9.6 fL (7.4-10.4); Monocytes # 4.7 10^3/uL (0.2-0.9); Monocytes % 11.9 %; Neutrophils # 3.62 10^3/uL (1.8-7.7); Neutrophils % 9.1 %; Nucleated Red Blood Cells % 0 %; Platelet Count 212 10^3/cmm (157-399); Red Blood Count 3.51 10^6/uL (3.85-5.65); Red Cell Distribution Width 13.2 % (12.1-15.1)
[2023-03-24 13:58] LABS: Alanine Aminotransferase 19 U/L (0-33); Albumin Level 3.8 g/dL (3.5-5.2); Alkaline Phosphatase 103 U/L (35-105); Anion Gap 15.9 (5-19); Aspartate Amino Transferase 21 U/L (0-32); Blood Urea Nitrogen 44 mg/dL (8-23); Calcium 8.7 mg/dL (8.5-10.5); Carbon Dioxide 24 mmol/L (22-29); Chloride 103 mmol/L (98-107); Globulin 2.8 g/dL (1.3-4.6); Glucose 161 mg/dL (65-115); Lactate Dehydrogenase 186 U/L (135-214); Osmolality Calculated 301 mOsm/kg (285-295); Potassium 4.9 mmol/L (3.5-5.1); Sodium 138 mmol/L (136-145); Total Bilirubin 0.3 mg/dL (0.15-1.2); Total Protein 6.6 g/dL (6.6-8.7)
[2023-03-24 14:17] LABS: Slide Review Slide Review Perform
[2023-03-24 14:19] LABS: White Blood Count 39.76 10^3/uL (3.29-11.43)
== END 2023-04-22 23:59 | disposition home or self-care (01) ==
PROVIDERS: Nurse Practitioner Family; PCP Registered Nurse; Visit Provider Internal Medicine Medical Oncology
DX: C91.10 Chronic lymphocytic leukemia of B-cell type not having achieved remission (principal)
CPT/HCPCS: 36415; 80053; 83615; 85025; 99214

== ENCOUNTER → 2023-03-25 12:22 | Outpatient (BNVA) | payer MEDICARE, SELFPAY | PROVIDERS: PCP Registered Nurse; Referring Provider Registered Nurse; Visit Provider Internal Medicine | DX: R07.9 Chest pain, unspecified (principal); C91.10 Chronic lymphocytic leukemia of B-cell type not having achieved remission; I10 Essential (primary) hypertension; R00.2 Palpitations; Z87.891 Personal history of nicotine dependence; R94.31 Abnormal electrocardiogram [ECG] [EKG] | CPT/HCPCS: 93005; 99204 ==

== ENCOUNTER → 2023-04-08 14:54 | Outpatient (BNVA) | payer MEDICARE, SELFPAY | PROVIDERS: PCP Registered Nurse; Referring Provider Internal Medicine; Visit Provider Internal Medicine | DX: I10 Essential (primary) hypertension (principal); R00.2 Palpitations | CPT/HCPCS: 36415; 80048; 83880 ==

== ENCOUNTER 2023-05-20 14:21 | Outpatient (CLI) | payer MEDICARE, SELFPAY ==
--- NOTE | 2023-05-20 12:00 | PETR_ITS ---
PROCEDURE INFORMATION: Exam: PET/CT Skull Base to Mid-thigh Exam date and time: 05/20/2023 12:57 PM Age: 72 years old Clinical indication: Condition or disease; Primary cancer: Chronic lymphocytic leukemia not having achieved remission; Follow-up oncological assessment; Additional info: [facility] LABS AND CLINICAL REPORTS: Glucose: 107 mg/dl Treatment strategy for malignancy (PET staging): Restaging (PS) TECHNIQUE: Imaging protocol: Following at least four-hour fasting and following the injection of radiopharmaceutical, low dose CT images were obtained. Then, PET images were obtained. Attenuation corrected images were constructed using the CT scan. Fused images of PET and CT were reviewed. The standardized uptake values (SUV) reported below are maximum values within a region of interest, expressed in gm/ml. Exam includes orbital meatal line to mid-thigh. Radiopharmaceutical: 12.41 mCi F-18 FDG (Fluorodeoxyglucose), IV. Time of imaging post radiopharmaceutical administration: 1 hour Injection site: site COMPARISON: CT chest abdpel w/*[id number] 11/24/2020 2:33 PM FINDINGS: Brain: Visualized brain has normal physiologic uptake. Pharynx: No abnormal uptake. Larynx: No abnormal uptake. Lungs, pleura and trachea: No abnormal uptake. Heart: Normal physiologic uptake. Mediastinal space: No abnormal uptake. Liver: SUV max in the liver is 2.9. Gallbladder and bile ducts: No abnormal uptake. Pancreas: No abnormal uptake. Spleen: The spleen is enlarged to 14.6 cm. This is larger than the previous study where it measured 10 cm. No focal abnormal splenic uptake is seen. Adrenal glands: No abnormal uptake. Kidneys and ureters: Normal physiologic uptake. Stomach and bowel: No abnormal uptake. Vasculature: Ectatic ascending aorta to 3.8 cm is unchanged. Lymph nodes: There are multiple mildly prominent bilateral cervical chain lymph nodes present without significant uptake. There is a lymph node in right level 2 on series 3, image number 33 measuring 7 mm short axis by 11 mm long axis with mild uptake, SUV maximum measures 2.8 (Deauville score of 3). Multiple subcentimeter bilateral retropectoral and axillary lymph nodes are similar to the previous study without significant uptake on PET. Index node for example left axilla series 3, image 77 measures 0.8 x 0.9 cm with SUV maximum of 1.6. Subcentimeter mediastinal nodes are also unchanged. Low-grade uptake is present in the a right paratracheal node measuring 0.6 x 0.9 cm on series 3, image 77 with SUV maximum of 2.4 (Deauville score of 3). No significant abdominal or pelvic lymphadenopathy is seen. Bones/joints: Chronic mild mid to lower thoracic compression fracture deformities are unchanged. No suspicious bony lesion is seen. Soft tissues: See Lymph nodes finding. Other findings: Blood pool uptake: SUV max is 2.2. PET/[facility] SUBSEQ [id number] IMPRESSION: 1. Mildly prominent bilateral cervical chain lymph nodes with low-grade uptake in a right level 2 node. Similarly there are mildly prominent lymph nodes in the bilateral axillary region and mediastinum which are similar to the comparison CT chest with low-grade uptake (Deauville scores of 3). 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 Continued attention on follow-up recommended. 2. Splenomegaly without significant splenic uptake increased in size since previous.
== END 2023-05-20 14:22 | disposition home or self-care (01) ==
LOC: RAD 14:21
PROVIDERS: PCP Registered Nurse; Visit Provider Nurse Practitioner Family
DX: C91.10 Chronic lymphocytic leukemia of B-cell type not having achieved remission (principal); R16.1 Splenomegaly, not elsewhere classified
CPT/HCPCS: 78815; A9552

== ENCOUNTER 2023-05-28 11:25 | Oncology outpatient (recurring) (ONCR) | payer MEDICARE, SELFPAY ==
[2023-05-28 12:00] LABS: Reticulocyte % 0.9 % (0.5-2.0)
[2023-05-28 12:01] LABS: Mean Corpuscular HGB Conc 31.6 g/dL (30-55); Mean Corpuscular Hemoglobin 28.8 pg (27-33); Mean Corpuscular Volume 91.2 fl (85-98); Mean Platelet Volume 9.2 fL (7.4-10.4); Platelet Count 161 10^3/cmm (157-399); Red Blood Count 3.51 10^6/uL (3.85-5.65); Red Cell Distribution Width 13.3 % (12.1-15.1)
[2023-05-28 12:21] LABS: Alanine Aminotransferase 11 U/L (0-33); Alkaline Phosphatase 123 U/L (35-105); Anion Gap 15.3 (5-19); Aspartate Amino Transferase 19 U/L (0-32); Blood Urea Nitrogen 31 mg/dL (8-23); Calcium 8.9 mg/dL (8.5-10.5); Carbon Dioxide 24 mmol/L (22-29); Chloride 104 mmol/L (98-107); Globulin 3.1 g/dL (1.3-4.6); Glucose 116 mg/dL (65-115); Iron 109 ug/dL (37-145); Lactate Dehydrogenase 150 U/L (135-214); Osmolality Calculated 296 mOsm/kg (285-295); Percent Saturation 68.1 % (20-50); Potassium 4.3 mmol/L (3.5-5.1); Sodium 139 mmol/L (136-145); Total Bilirubin 0.3 mg/dL (0.15-1.2); Total Iron Binding Capacity 160 mcg/dl; Total Protein 7.1 g/dL (6.6-8.7); Unsaturated Iron Binding 51 ug/dL (112-347)
[2023-05-28 12:35] LABS: Vitamin B12 510 pg/mL (232-1245)
[2023-05-28 12:45] LABS: White Blood Count 36.57 10^3/uL (3.29-11.43)
[2023-05-28 12:47] LABS: Slide Review Slide Review Perform; Total Cells Counted 100 (0-100)
[2023-05-28 12:55] LABS: Absolute Eosinophils 0.4 10^3/cmm (0.0-0.7); Absolute Neutrophil 6.9 10^3/cmm (1.4-6.5); Absolute Segmented Neutrophil 6.9 10/cmm (1.6-7.1); Eosinophils 1 %; Lymphocytes 39 %; Lymphocytes Absolute 29.3 10^3/cmm (1.2-3.4); Platelet Estimate Decreased (Normal); Segmented Neutrophils 19 %
== END 2023-06-22 23:59 | disposition home or self-care (01) ==
PROVIDERS: Internal Medicine Medical Oncology; PCP Registered Nurse; Visit Provider Internal Medicine Hematology & Oncology
DX: C91.10 Chronic lymphocytic leukemia of B-cell type not having achieved remission (principal); Z79.899 Other long term (current) drug therapy
CPT/HCPCS: 36415; 80053; 82607; 83010; 83540; 83550; 83615; 85007; 85025; 85045; 99214

== ENCOUNTER 2023-06-24 15:10 | Oncology outpatient (recurring) (ONCR) | payer MEDICARE, SELFPAY ==
[2023-06-24 15:33] LABS: Hematocrit 33.1 % (36-47); Mean Corpuscular Hemoglobin 29.4 pg (27-33); Mean Corpuscular Volume 91.7 fl (85-98); Mean Platelet Volume 8.9 fL (7.4-10.4); Platelet Count 179 10^3/cmm (157-399); Red Blood Count 3.61 10^6/uL (3.85-5.65); Red Cell Distribution Width 13.8 % (12.1-15.1)
[2023-06-24 15:49] LABS: White Blood Count 59.71 10^3/uL (3.29-11.43)
[2023-06-24 15:50] LABS: Alanine Aminotransferase 21 U/L (0-33); Albumin Level 4.2 g/dL (3.5-5.2); Alkaline Phosphatase 157 U/L (35-105); Anion Gap 16.5 (5-19); Aspartate Amino Transferase 24 U/L (0-32); Blood Urea Nitrogen 35 mg/dL (8-23); Calcium 9.5 mg/dL (8.5-10.5); Carbon Dioxide 24 mmol/L (22-29); Chloride 102 mmol/L (98-107); Globulin 3.6 g/dL (1.3-4.6); Glucose 104 mg/dL (65-115); Lactate Dehydrogenase 160 U/L (135-214); Osmolality Calculated 292 mOsm/kg (285-295); Potassium 5.5 mmol/L (3.5-5.1); Sodium 137 mmol/L (136-145); Total Bilirubin 0.3 mg/dL (0.15-1.2); Total Protein 7.8 g/dL (6.6-8.7)
[2023-06-24 15:52] LABS: Slide Review Slide Review Perform
[2023-06-24 15:53] LABS: Total Cells Counted 100 (0-100)
[2023-06-24 15:58] LABS: Absolute Neutrophil 5.4 10^3/cmm (1.4-6.5); Absolute Segmented Neutrophil 5.4 10/cmm (1.6-7.1); Eosinophils 0 %; Lymphocytes 53 %; Lymphocytes Absolute 54.3 10^3/cmm (1.2-3.4); Platelet Estimate Decreased (Normal); Segmented Neutrophils 9 %
== END 2023-07-23 23:59 | disposition home or self-care (01) ==
PROVIDERS: Internal Medicine Medical Oncology; PCP Registered Nurse; Visit Provider Internal Medicine Hematology & Oncology
DX: C91.10 Chronic lymphocytic leukemia of B-cell type not having achieved remission (principal); Z79.899 Other long term (current) drug therapy
CPT/HCPCS: 36415; 80053; 83615; 85007; 85025; 99214

== ENCOUNTER 2023-09-17 08:00 | Oncology outpatient (recurring) (ONCR) | payer MEDICARE, SELFPAY ==
[2023-08-27 12:55] LABS: Reticulocyte % 1.3 % (0.5-2.0)
[2023-08-27 12:56] LABS: Hematocrit 30.6 % (36-47); Mean Corpuscular HGB Conc 31.7 g/dL (30-55); Mean Corpuscular Hemoglobin 30.1 pg (27-33); Mean Platelet Volume 9.1 fL (7.4-10.4); Platelet Count 219 10^3/cmm (157-399); Red Blood Count 3.22 10^6/uL (3.85-5.65); Red Cell Distribution Width 13.2 % (12.1-15.1)
[2023-08-27 13:20] LABS: White Blood Count 63.74 10^3/uL (3.29-11.43)
[2023-08-27 13:24] LABS: Alanine Aminotransferase 8 U/L (0-33); Albumin Level 3.9 g/dL (3.5-5.2); Alkaline Phosphatase 135 U/L (35-105); Anion Gap 15.4 (5-19); Aspartate Amino Transferase 17 U/L (0-32); Blood Urea Nitrogen 30 mg/dL (8-23); Calcium 8.9 mg/dL (8.5-10.5); Carbon Dioxide 24 mmol/L (22-29); Chloride 102 mmol/L (98-107); Ferritin 270 ng/mL (15-150); Globulin 3.4 g/dL (1.3-4.6); Glucose 91 mg/dL (65-115); Iron 74 ug/dL (37-145); Lactate Dehydrogenase 252 U/L (135-214); Osmolality Calculated 288 mOsm/kg (285-295); Potassium 5.4 mmol/L (3.5-5.1); Sodium 136 mmol/L (136-145); Total Bilirubin 0.2 mg/dL (0.15-1.2); Total Iron Binding Capacity 172 mcg/dl; Total Protein 7.3 g/dL (6.6-8.7); Unsaturated Iron Binding 98 ug/dL (112-347)
[2023-08-27 13:25] LABS: Slide Review Slide Review Perform
[2023-08-27 13:26] LABS: Absolute Neutrophil 9.6 10^3/cmm (1.4-6.5); Absolute Segmented Neutrophil 9.6 10/cmm (1.6-7.1); Eosinophils 0 %; Lymphocytes 64 %; Lymphocytes Absolute 52.3 10^3/cmm (1.2-3.4); Monocytes Absolute 1.9 10^3/cmm (0.1-0.6); Platelet Estimate Normal (Normal); Segmented Neutrophils 15 %; Total Cells Counted 100 (0-100)
[2023-09-17 08:14] VITALS: BP 112/74; PULSE 66; RESP 16; TEMP 36.6; O2SAT 98
[2023-09-17 08:24] LABS: Hematocrit 29.8 % (36-47); Mean Corpuscular HGB Conc 31.9 g/dL (30-55); Mean Corpuscular Hemoglobin 30.2 pg (27-33); Mean Corpuscular Volume 94.6 fl (85-98); Mean Platelet Volume 9.2 fL (7.4-10.4); Platelet Count 169 10^3/cmm (157-399); Red Blood Count 3.15 10^6/uL (3.85-5.65); Red Cell Distribution Width 13.2 % (12.1-15.1)
[2023-09-17 08:41] LABS: Alanine Aminotransferase 11 U/L (0-33); Albumin Level 3.8 g/dL (3.5-5.2); Alkaline Phosphatase 134 U/L (35-105); Anion Gap 17.1 (5-19); Aspartate Amino Transferase 18 U/L (0-32); Blood Urea Nitrogen 38 mg/dL (8-23); Calcium 8.8 mg/dL (8.5-10.5); Carbon Dioxide 22 mmol/L (22-29); Chloride 101 mmol/L (98-107); Globulin 3.6 g/dL (1.3-4.6); Glucose 127 mg/dL (65-115); Lactate Dehydrogenase 137 U/L (135-214); Osmolality Calculated 293 mOsm/kg (285-295); Potassium 4.1 mmol/L (3.5-5.1); Sodium 136 mmol/L (136-145); Total Bilirubin 0.2 mg/dL (0.15-1.2); Total Protein 7.4 g/dL (6.6-8.7)
[2023-09-17 09:05] LABS: Creatinine Clr Calc Pharmacy 31.0891
[2023-09-17 09:15] LABS: White Blood Count 52.28 10^3/uL (3.29-11.43)
[2023-09-17 09:20] LABS: Absolute Eosinophils 0.5 10^3/cmm (0.0-0.7); Absolute Neutrophil 4.7 10^3/cmm (1.4-6.5); Absolute Segmented Neutrophil 4.7 10/cmm (1.6-7.1); Eosinophils 1 %; Lymphocytes 76 %; Lymphocytes Absolute 44.4 10^3/cmm (1.2-3.4); Monocytes Absolute 2.6 10^3/cmm (0.1-0.6); Platelet Estimate Normal (Normal); Segmented Neutrophils 9 %; Slide Review Slide Review Perform; Total Cells Counted 100 (0-100)
[2023-09-17] MEDS: acetaminophen 325 mg Tablet 650 MG PO (10:44)
[2023-09-17] MEDS: sodium chloride 0.9% 250 ML 75 ML IV (10:45)
[2023-09-17] MEDS: diphenhydrAMINE 50 mg/mL SDV 1mL IVP (10:48)
[2023-09-17] MEDS: dexamethasone 20 MG in sodium chloride 0.9% 50 ML 188 MG IV (10:55)
[2023-09-17] MEDS: obinutuzumab 100 MG in sodium chloride 0.9% (100 ml) 100 ML 26 MG IV (11:24)
[2023-09-17 12:20] VITALS: BP 92/59; PULSE 77; O2SAT 99
[2023-09-17 16:01] VITALS: BP 100/62; PULSE 86; RESP 16; TEMP 37.1; O2SAT 96
== END 2023-09-17 23:59 | disposition home or self-care (01) ==
PROVIDERS: Nurse Practitioner Family; PCP Registered Nurse; Visit Provider Internal Medicine Medical Oncology
DX: D50.8 Other iron deficiency anemias (principal); C91.10 Chronic lymphocytic leukemia of B-cell type not having achieved remission; Z79.899 Other long term (current) drug therapy; Z53.9 Procedure and treatment not carried out, unspecified reason
CPT/HCPCS: 36415; 80053; 82728; 83010; 83540; 83550; 83615; 85007; 85025; 85045; 96367; 96375; 96413; 96415; 99214; 99215; J1100; J1200; J7050; J9301

== ENCOUNTER 2023-09-18 09:23 | Oncology outpatient (recurring) (ONCR) | payer MEDICARE, SELFPAY ==
[2023-09-18] VITALS (9 sets, daily range): BP systolic 107–127; BP diastolic 62–79; PULSE 64–97; RESP 16–18; TEMP 36.7–37.1; O2SAT 94–99
[2023-09-18] MEDS: sodium chloride 0.9% 250 ML 75 ML IV (10:17)
[2023-09-18] MEDS: diphenhydrAMINE 50 mg/mL SDV 1mL IVP (10:22)
[2023-09-18] MEDS: acetaminophen 325 mg Tablet 650 MG PO (10:25)
[2023-09-18] MEDS: dexamethasone 20 MG in sodium chloride 0.9% 50 ML 188 MG IV (10:28)
[2023-09-18] MEDS: obinutuzumab 900 MG in sodium chloride 0.9%(non-DEHP) 250 ML 9.69999999999999929 MG IV (11:19)
== END 2023-09-21 23:59 | disposition home or self-care (01) ==
PROVIDERS: PCP Registered Nurse; Visit Provider Internal Medicine Medical Oncology
DX: C91.10 Chronic lymphocytic leukemia of B-cell type not having achieved remission; Z53.9 Procedure and treatment not carried out, unspecified reason
CPT/HCPCS: 96367; 96375; 96413; 96415; J1100; J1200; J7050; J9301

== ENCOUNTER 2023-10-06 08:45 | Oncology outpatient (recurring) (ONCR) | payer MEDICARE, SELFPAY ==
[2023-09-24 09:02] VITALS: BP 96/62; PULSE 87; RESP 16; TEMP 36.6; O2SAT 98
[2023-09-24 09:05] LABS: Basophils % 0.5 %; Eosinophils # 0.2 10^3/uL (0.0-0.8); Hematocrit 29.5 % (36-47); Lymphocytes # 0.9 10^3/uL (0.8-4.8); Lymphocytes % 39.7 %; Mean Corpuscular HGB Conc 32.5 g/dL (30-55); Mean Corpuscular Volume 92.2 fl (85-98); Monocytes # 0.4 10^3/uL (0.2-0.9); Monocytes % 17.3 %; Nucleated Red Blood Cells % 0 %; Platelet Count 102 10^3/cmm (157-399); Red Cell Distribution Width 13.2 % (12.1-15.1); White Blood Count 2.14 10^3/uL (3.29-11.43)
[2023-09-24 09:22] LABS: Neutrophils # 0.75 10^3/uL (1.8-7.7)
[2023-09-24 09:25] LABS: Alanine Aminotransferase 58 U/L (0-33); Albumin Level 3.6 g/dL (3.5-5.2); Alkaline Phosphatase 106 U/L (35-105); Anion Gap 13.7 (5-19); Aspartate Amino Transferase 39 U/L (0-32); Blood Urea Nitrogen 39 mg/dL (8-23); Calcium 8.8 mg/dL (8.5-10.5); Carbon Dioxide 21 mmol/L (22-29); Chloride 103 mmol/L (98-107); Creatinine Clr Calc Pharmacy 29.0164; Globulin 3.2 g/dL (1.3-4.6); Glucose 111 mg/dL (65-115); Osmolality Calculated 286 mOsm/kg (285-295); Potassium 4.7 mmol/L (3.5-5.1); Sodium 133 mmol/L (136-145); Total Bilirubin 0.3 mg/dL (0.15-1.2); Total Protein 6.8 g/dL (6.6-8.7)
[2023-09-24] MEDS: sodium chloride 0.9% 250 ML 75 ML IV (10:07)
[2023-09-24] MEDS: acetaminophen 325 mg Tablet 650 MG PO (10:07)
[2023-09-24] MEDS: diphenhydrAMINE 50 mg/mL SDV 1mL IVP (10:07)
[2023-09-24] MEDS: dexamethasone 20 MG in sodium chloride 0.9% 50 ML 188 MG IV (10:13)
[2023-09-24] MEDS: [UNRECOGNIZED DRUG - REMARK] 32.5 MG IV (10:53)
[2023-09-24 10:55] VITALS: BP 95/60; PULSE 73; RESP 16; TEMP 36.4; O2SAT 98
[2023-09-24 11:30] VITALS: BP 94/53; PULSE 73; RESP 16; TEMP 36.7; O2SAT 99
[2023-09-24 12:00] VITALS: BP 95/56; PULSE 78; RESP 16; TEMP 36.3; O2SAT 97
[2023-09-24 12:37] VITALS: BP 94/54; PULSE 85; RESP 16; TEMP 36.4; O2SAT 98
[2023-09-24 14:28] VITALS: BP 94/58; PULSE 82; TEMP 36.4; O2SAT 97
[2023-09-29] MEDS: famotidine 20 mg/2 mL INJ IVP (10:26)
[2023-09-29 10:32] VITALS: BP 93/58; PULSE 80; RESP 16; TEMP 36.6; O2SAT 97
[2023-09-29 11:08] VITALS: BP 98/64; PULSE 80; RESP 18; TEMP 36.7; O2SAT 95
[2023-10-06 08:58] LABS: Basophils % 0.2 %; Eosinophils % 0.5 %; Hematocrit 29.9 % (36-47); Lymphocytes # 2.3 10^3/uL (0.8-4.8); Lymphocytes % 27.9 %; Mean Corpuscular HGB Conc 33.1 g/dL (30-55); Mean Corpuscular Hemoglobin 30.6 pg (27-33); Mean Corpuscular Volume 92.3 fl (85-98); Mean Platelet Volume 9.2 fL (7.4-10.4); Monocytes # 0.4 10^3/uL (0.2-0.9); Monocytes % 5.3 %; Neutrophils # 5.44 10^3/uL (1.8-7.7); Neutrophils % 65.6 %; Nucleated Red Blood Cells % 0 %; Platelet Count 248 10^3/cmm (157-399); Red Blood Count 3.24 10^6/uL (3.85-5.65); Red Cell Distribution Width 13.8 % (12.1-15.1); White Blood Count 8.29 10^3/uL (3.29-11.43)
[2023-10-06 09:15] LABS: Alanine Aminotransferase 12 U/L (0-33); Albumin Level 3.4 g/dL (3.5-5.2); Alkaline Phosphatase 82 U/L (35-105); Aspartate Amino Transferase 11 U/L (0-32); Blood Urea Nitrogen 45 mg/dL (8-23); Calcium 8.5 mg/dL (8.5-10.5); Carbon Dioxide 21 mmol/L (22-29); Chloride 104 mmol/L (98-107); Glucose 127 mg/dL (65-115); Osmolality Calculated 293 mOsm/kg (285-295); Sodium 135 mmol/L (136-145); Total Bilirubin 0.2 mg/dL (0.15-1.2); Total Protein 6.4 g/dL (6.6-8.7)
[2023-10-06 09:17] LABS: Creatinine Clr Calc Pharmacy 28.7294
[2023-10-06 09:18] LABS: Anion Gap 14.1 (5-19); Potassium 4.1 mmol/L (3.5-5.1)
== END 2023-10-06 23:59 | disposition home or self-care (01) ==
PROVIDERS: Nurse Practitioner Family; PCP Registered Nurse; Visit Provider Internal Medicine Medical Oncology
DX: C91.10 Chronic lymphocytic leukemia of B-cell type not having achieved remission (principal); R21 Rash and other nonspecific skin eruption; Z79.899 Other long term (current) drug therapy; Z53.9 Procedure and treatment not carried out, unspecified reason
CPT/HCPCS: 80053; 85025; 96365; 96366; 96367; 96375; 99214; J1100; J1200; J3490; J7050; J9301

== ENCOUNTER 2023-10-15 08:17 | Oncology outpatient (recurring) (ONCR) | payer MEDICARE, SELFPAY ==
[2023-10-15 09:01] LABS: Basophils % 0.6 %; Eosinophils # 0.1 10^3/uL (0.0-0.8); Eosinophils % 1.1 %; Hematocrit 30.4 % (36-47); Lymphocytes # 1.4 10^3/uL (0.8-4.8); Lymphocytes % 26.6 %; Mean Corpuscular HGB Conc 32.9 g/dL (30-55); Mean Corpuscular Hemoglobin 30.7 pg (27-33); Mean Corpuscular Volume 93.3 fl (85-98); Mean Platelet Volume 9.3 fL (7.4-10.4); Monocytes # 0.4 10^3/uL (0.2-0.9); Monocytes % 6.9 %; Neutrophils # 3.38 10^3/uL (1.8-7.7); Neutrophils % 64.6 %; Nucleated Red Blood Cells % 0 %; Platelet Count 137 10^3/cmm (157-399); Red Blood Count 3.26 10^6/uL (3.85-5.65); Red Cell Distribution Width 14.6 % (12.1-15.1); White Blood Count 5.23 10^3/uL (3.29-11.43)
[2023-10-15 09:31] LABS: Alanine Aminotransferase 12 U/L (0-33); Albumin Level 3.6 g/dL (3.5-5.2); Alkaline Phosphatase 87 U/L (35-105); Anion Gap 16.2 (5-19); Aspartate Amino Transferase 14 U/L (0-32); Blood Urea Nitrogen 45 mg/dL (8-23); Calcium 8.8 mg/dL (8.5-10.5); Carbon Dioxide 24 mmol/L (22-29); Chloride 101 mmol/L (98-107); Glucose 97 mg/dL (65-115); Osmolality Calculated 295 mOsm/kg (285-295); Potassium 4.2 mmol/L (3.5-5.1); Sodium 137 mmol/L (136-145); Total Bilirubin 0.3 mg/dL (0.15-1.2); Total Protein 6.6 g/dL (6.6-8.7)
[2023-10-15] MEDS: sodium chloride 0.9% 250 ML 75 ML IV (10:26)
[2023-10-15] MEDS: methylPREDNISolone sod succ 40 mg/mL INJ IVP (10:26)
[2023-10-15] MEDS: acetaminophen 325 mg Tablet 650 MG PO (10:28)
[2023-10-15] MEDS: diphenhydrAMINE 50 mg/mL SDV 1mL IVP (10:31)
[2023-10-15] MEDS: obinutuzumab 1,000 MG in sodium chloride 0.9% 250 ML 30 MG IV (11:35)
[2023-10-15 11:41] VITALS: BP 89/57; PULSE 75; RESP 16; TEMP 36.4; O2SAT 97
[2023-10-15 12:12] VITALS: BP 87/56; PULSE 74; RESP 16; O2SAT 98
[2023-10-15 12:45] VITALS: BP 92/59; PULSE 75; RESP 16; TEMP 36.4; O2SAT 95
[2023-10-15 13:15] VITALS: BP 93/61; PULSE 68; RESP 16; O2SAT 96
[2023-10-15 14:02] VITALS: BP 89/57; PULSE 76; RESP 16; TEMP 36.4; O2SAT 97
[2023-10-15 15:14] VITALS: BP 95/61; PULSE 80; RESP 16; TEMP 36.6; O2SAT 97
== END 2023-10-21 23:59 | disposition home or self-care (01) ==
PROVIDERS: Nurse Practitioner Family; PCP Registered Nurse; Visit Provider Internal Medicine Medical Oncology
DX: C91.10 Chronic lymphocytic leukemia of B-cell type not having achieved remission (principal); D50.8 Other iron deficiency anemias; Z79.899 Other long term (current) drug therapy
CPT/HCPCS: 80053; 85025; 96375; 96413; 96415; 99214; J1200; J2919; J7050; J9301; J9999

== ENCOUNTER 2023-11-12 08:00 | Oncology outpatient (recurring) (ONCR) | payer MEDICARE, SELFPAY ==
[2023-10-22 10:37] LABS: Basophils % 0.7 %; Eosinophils % 0.7 %; Hematocrit 28.9 % (36-47); Lymphocytes % 35.8 %; Mean Corpuscular HGB Conc 33.6 g/dL (30-55); Mean Corpuscular Hemoglobin 30.7 pg (27-33); Mean Corpuscular Volume 91.5 fl (85-98); Mean Platelet Volume 9.1 fL (7.4-10.4); Monocytes # 0.2 10^3/uL (0.2-0.9); Monocytes % 7.7 %; Neutrophils % 54.7 %; Nucleated Red Blood Cells % 0 %; Platelet Count 131 10^3/cmm (157-399); Red Blood Count 3.16 10^6/uL (3.85-5.65); Red Cell Distribution Width 14.6 % (12.1-15.1); White Blood Count 2.74 10^3/uL (3.29-11.43)
[2023-10-22 10:49] LABS: Alanine Aminotransferase 17 U/L (0-33); Albumin Level 3.8 g/dL (3.5-5.2); Alkaline Phosphatase 105 U/L (35-105); Anion Gap 16.2 (5-19); Aspartate Amino Transferase 18 U/L (0-32); Blood Urea Nitrogen 44 mg/dL (8-23); Calcium 8.9 mg/dL (8.5-10.5); Carbon Dioxide 25 mmol/L (22-29); Chloride 97 mmol/L (98-107); Globulin 2.8 g/dL (1.3-4.6); Glucose 97 mg/dL (65-115); Osmolality Calculated 289 mOsm/kg (285-295); Potassium 4.2 mmol/L (3.5-5.1); Sodium 134 mmol/L (136-145); Total Bilirubin 0.3 mg/dL (0.15-1.2); Total Protein 6.6 g/dL (6.6-8.7)
[2023-10-29 10:45] LABS: Basophils % 0.4 %; Eosinophils % 0.4 %; Lymphocytes % 42.7 %; Mean Corpuscular HGB Conc 34.8 g/dL (30-55); Mean Corpuscular Hemoglobin 31.6 pg (27-33); Mean Corpuscular Volume 90.9 fl (85-98); Mean Platelet Volume 9.1 fL (7.4-10.4); Monocytes # 0.3 10^3/uL (0.2-0.9); Monocytes % 14.7 %; Neutrophils % 41.8 %; Nucleated Red Blood Cells % 0 %; Platelet Count 186 10^3/cmm (157-399); Red Blood Count 2.97 10^6/uL (3.85-5.65); Red Cell Distribution Width 15.6 % (12.1-15.1); White Blood Count 2.32 10^3/uL (3.29-11.43)
[2023-10-29 11:48] LABS: Neutrophils # 0.97 10^3/uL (1.8-7.7)
[2023-10-29 12:07] LABS: Alanine Aminotransferase 32 U/L (0-33); Albumin Level 3.8 g/dL (3.5-5.2); Alkaline Phosphatase 107 U/L (35-105); Anion Gap 12.7 (5-19); Aspartate Amino Transferase 31 U/L (0-32); Blood Urea Nitrogen 33 mg/dL (8-23); Calcium 8.3 mg/dL (8.5-10.5); Carbon Dioxide 25 mmol/L (22-29); Chloride 97 mmol/L (98-107); Globulin 2.7 g/dL (1.3-4.6); Glucose 104 mg/dL (65-115); Osmolality Calculated 280 mOsm/kg (285-295); Potassium 3.7 mmol/L (3.5-5.1); Sodium 131 mmol/L (136-145); Total Bilirubin 0.3 mg/dL (0.15-1.2); Total Protein 6.5 g/dL (6.6-8.7)
[2023-11-05 11:16] LABS: Basophils % 0.4 %; Eosinophils % 0.4 %; Hematocrit 28.1 % (36-47); Lymphocytes # 1.1 10^3/uL (0.8-4.8); Lymphocytes % 42.7 %; Mean Corpuscular HGB Conc 34.2 g/dL (30-55); Mean Corpuscular Hemoglobin 31.9 pg (27-33); Mean Corpuscular Volume 93.4 fl (85-98); Mean Platelet Volume 8.7 fL (7.4-10.4); Monocytes # 0.4 10^3/uL (0.2-0.9); Monocytes % 15.3 %; Neutrophils # 1.04 10^3/uL (1.8-7.7); Neutrophils % 40.8 %; Nucleated Red Blood Cells % 0 %; Platelet Count 188 10^3/cmm (157-399); Red Blood Count 3.01 10^6/uL (3.85-5.65); Red Cell Distribution Width 16.5 % (12.1-15.1); White Blood Count 2.55 10^3/uL (3.29-11.43)
[2023-11-05 11:36] LABS: Alanine Aminotransferase 17 U/L (0-33); Albumin Level 3.7 g/dL (3.5-5.2); Alkaline Phosphatase 106 U/L (35-105); Anion Gap 13.4 (5-19); Aspartate Amino Transferase 19 U/L (0-32); Blood Urea Nitrogen 35 mg/dL (8-23); Calcium 8.3 mg/dL (8.5-10.5); Carbon Dioxide 27 mmol/L (22-29); Chloride 95 mmol/L (98-107); Globulin 2.7 g/dL (1.3-4.6); Glucose 93 mg/dL (65-115); Osmolality Calculated 282 mOsm/kg (285-295); Potassium 3.4 mmol/L (3.5-5.1); Sodium 132 mmol/L (136-145); Total Bilirubin 0.3 mg/dL (0.15-1.2); Total Protein 6.4 g/dL (6.6-8.7)
[2023-11-12 08:12] LABS: Basophils % 0.4 %; Eosinophils % 0.4 %; Hematocrit 31.2 % (36-47); Lymphocytes # 1.1 10^3/uL (0.8-4.8); Mean Corpuscular Hemoglobin 32.1 pg (27-33); Mean Corpuscular Volume 97.2 fl (85-98); Mean Platelet Volume 9.3 fL (7.4-10.4); Monocytes # 0.3 10^3/uL (0.2-0.9); Monocytes % 12.2 %; Neutrophils # 1.16 10^3/uL (1.8-7.7); Nucleated Red Blood Cells % 0 %; Platelet Count 177 10^3/cmm (157-399); Red Blood Count 3.21 10^6/uL (3.85-5.65); White Blood Count 2.63 10^3/uL (3.29-11.43)
[2023-11-12 08:29] LABS: Alanine Aminotransferase 13 U/L (0-33); Alkaline Phosphatase 102 U/L (35-105); Anion Gap 14.3 (5-19); Aspartate Amino Transferase 18 U/L (0-32); Blood Urea Nitrogen 49 mg/dL (8-23); Calcium 8.7 mg/dL (8.5-10.5); Carbon Dioxide 26 mmol/L (22-29); Chloride 101 mmol/L (98-107); Globulin 2.8 g/dL (1.3-4.6); Glucose 95 mg/dL (65-115); Osmolality Calculated 297 mOsm/kg (285-295); Potassium 4.3 mmol/L (3.5-5.1); Sodium 137 mmol/L (136-145); Total Bilirubin 0.3 mg/dL (0.15-1.2); Total Protein 6.8 g/dL (6.6-8.7)
[2023-11-12 10:15] VITALS: BMI 23.6
[2023-11-12] MEDS: sodium chloride 0.9% 250 ML 75 ML IV (10:44)
[2023-11-12] MEDS: acetaminophen 325 mg Tablet 650 MG PO (10:47)
[2023-11-12] MEDS: diphenhydrAMINE 50 mg/mL SDV 1mL IVP (10:48)
[2023-11-12] MEDS: methylPREDNISolone sod succ 40 mg SDV IVP (10:51)
[2023-11-12] MEDS: sodium chloride 0.9% 500 ML 999 ML IV (10:58)
[2023-11-12 11:40] VITALS: BP 104/64; PULSE 65; RESP 16; TEMP 36.1; O2SAT 95
[2023-11-12] MEDS: obinutuzumab 1,000 MG in sodium chloride 0.9% 250 ML 29 MG IV (11:40)
[2023-11-12 12:10] VITALS: BP 102/66; PULSE 66; RESP 16; TEMP 36.2; O2SAT 96
[2023-11-12 12:40] VITALS: BP 123/75; PULSE 66; RESP 16; TEMP 36.1; O2SAT 98
[2023-11-12 13:10] VITALS: BP 106/67; PULSE 67; RESP 16; TEMP 36.2; O2SAT 97
[2023-11-12 15:10] VITALS: BP 108/67; PULSE 75; RESP 16; TEMP 36.3; O2SAT 98
== END 2023-11-12 23:59 | disposition home or self-care (01) ==
PROVIDERS: Nurse Practitioner Family; PCP Registered Nurse; Visit Provider Internal Medicine Medical Oncology
DX: Z53.9 Procedure and treatment not carried out, unspecified reason (principal); Z51.11 Encounter for antineoplastic chemotherapy; C91.10 Chronic lymphocytic leukemia of B-cell type not having achieved remission; Z79.899 Other long term (current) drug therapy; Z87.891 Personal history of nicotine dependence; E86.0 Dehydration
CPT/HCPCS: 36415; 80053; 85025; 96375; 96413; 96415; 99214; J1200; J2919; J7040; J7050; J9301

== ENCOUNTER 2023-11-19 13:05 | Oncology outpatient (recurring) (ONCR) | payer MEDICARE, SELFPAY ==
[2023-11-19 13:33] LABS: Hematocrit 30.6 % (36-47); Lymphocytes # 1.5 10^3/uL (0.8-4.8); Lymphocytes % 44.9 %; Mean Corpuscular HGB Conc 34.3 g/dL (30-55); Mean Corpuscular Hemoglobin 32.3 pg (27-33); Mean Corpuscular Volume 94.2 fl (85-98); Mean Platelet Volume 9.2 fL (7.4-10.4); Monocytes # 0.3 10^3/uL (0.2-0.9); Monocytes % 8.7 %; Neutrophils # 1.55 10^3/uL (1.8-7.7); Neutrophils % 46.4 %; Nucleated Red Blood Cells % 0 %; Platelet Count 104 10^3/cmm (157-399); Red Blood Count 3.25 10^6/uL (3.85-5.65); Red Cell Distribution Width 16.8 % (12.1-15.1); White Blood Count 3.34 10^3/uL (3.29-11.43)
[2023-11-19 14:01] LABS: Alanine Aminotransferase 10 U/L (0-33); Albumin Level 3.9 g/dL (3.5-5.2); Alkaline Phosphatase 107 U/L (35-105); Anion Gap 15.7 (5-19); Aspartate Amino Transferase 15 U/L (0-32); Blood Urea Nitrogen 33 mg/dL (8-23); Calcium 9.2 mg/dL (8.5-10.5); Carbon Dioxide 23 mmol/L (22-29); Chloride 100 mmol/L (98-107); Globulin 2.6 g/dL (1.3-4.6); Glucose 99 mg/dL (65-115); Osmolality Calculated 285 mOsm/kg (285-295); Potassium 4.7 mmol/L (3.5-5.1); Sodium 134 mmol/L (136-145); Total Bilirubin 0.5 mg/dL (0.15-1.2); Total Protein 6.5 g/dL (6.6-8.7)
== END 2023-11-21 23:59 | disposition home or self-care (01) ==
LOC: ONCMED 13:06
PROVIDERS: Nurse Practitioner Family; PCP Registered Nurse; Visit Provider Internal Medicine Medical Oncology
DX: C91.10 Chronic lymphocytic leukemia of B-cell type not having achieved remission
CPT/HCPCS: 36415; 80053; 85025

== ENCOUNTER 2023-12-10 07:45 | Oncology outpatient (recurring) (ONCR) | payer MEDICARE, SELFPAY ==
[2023-11-26 10:51] LABS: Hematocrit 29.8 % (36-47); Lymphocytes # 1.1 10^3/uL (0.8-4.8); Lymphocytes % 46.1 %; Mean Corpuscular HGB Conc 34.2 g/dL (30-55); Mean Corpuscular Hemoglobin 32.5 pg (27-33); Mean Corpuscular Volume 94.9 fl (85-98); Mean Platelet Volume 9.8 fL (7.4-10.4); Monocytes # 0.2 10^3/uL (0.2-0.9); Monocytes % 8.6 %; Neutrophils % 44.9 %; Nucleated Red Blood Cells % 0 %; Platelet Count 99 10^3/cmm (157-399); Red Blood Count 3.14 10^6/uL (3.85-5.65); Red Cell Distribution Width 15.9 % (12.1-15.1); White Blood Count 2.45 10^3/uL (3.29-11.43)
[2023-11-26 11:15] LABS: Alanine Aminotransferase 8 U/L (0-33); Albumin Level 3.9 g/dL (3.5-5.2); Alkaline Phosphatase 107 U/L (35-105); Anion Gap 14.9 (5-19); Aspartate Amino Transferase 15 U/L (0-32); Blood Urea Nitrogen 36 mg/dL (8-23); Calcium 9.2 mg/dL (8.5-10.5); Carbon Dioxide 23 mmol/L (22-29); Chloride 106 mmol/L (98-107); Globulin 2.6 g/dL (1.3-4.6); Glucose 76 mg/dL (65-115); Osmolality Calculated 297 mOsm/kg (285-295); Potassium 3.9 mmol/L (3.5-5.1); Sodium 140 mmol/L (136-145); Total Bilirubin 0.3 mg/dL (0.15-1.2); Total Protein 6.5 g/dL (6.6-8.7)
[2023-12-03 10:47] LABS: Eosinophils % 0.4 %; Hematocrit 27.2 % (36-47); Lymphocytes # 1.1 10^3/uL (0.8-4.8); Lymphocytes % 43.4 %; Mean Corpuscular HGB Conc 34.9 g/dL (30-55); Mean Corpuscular Hemoglobin 33.2 pg (27-33); Mean Corpuscular Volume 95.1 fl (85-98); Mean Platelet Volume 9.1 fL (7.4-10.4); Monocytes # 0.6 10^3/uL (0.2-0.9); Monocytes % 23.8 %; Nucleated Red Blood Cells % 0 %; Platelet Count 162 10^3/cmm (157-399); Red Blood Count 2.86 10^6/uL (3.85-5.65); Red Cell Distribution Width 15.4 % (12.1-15.1); White Blood Count 2.44 10^3/uL (3.29-11.43)
[2023-12-03 10:51] LABS: Neutrophils # 0.78 10^3/uL (1.8-7.7)
[2023-12-03 11:04] LABS: Alanine Aminotransferase 8 U/L (0-33); Albumin Level 3.9 g/dL (3.5-5.2); Alkaline Phosphatase 104 U/L (35-105); Anion Gap 17.3 (5-19); Aspartate Amino Transferase 12 U/L (0-32); Blood Urea Nitrogen 22 mg/dL (8-23); Calcium 9.3 mg/dL (8.5-10.5); Carbon Dioxide 22 mmol/L (22-29); Chloride 103 mmol/L (98-107); Globulin 2.9 g/dL (1.3-4.6); Glucose 103 mg/dL (65-115); Osmolality Calculated 290 mOsm/kg (285-295); Potassium 4.3 mmol/L (3.5-5.1); Sodium 138 mmol/L (136-145); Total Bilirubin 0.3 mg/dL (0.15-1.2); Total Protein 6.8 g/dL (6.6-8.7)
[2023-12-10 08:31] LABS: Basophils % 0.2 %; Eosinophils % 0.2 %; Hematocrit 30.6 % (36-47); Lymphocytes # 1.6 10^3/uL (0.8-4.8); Lymphocytes % 31.9 %; Mean Corpuscular Hemoglobin 33.3 pg (27-33); Mean Corpuscular Volume 95.3 fl (85-98); Mean Platelet Volume 8.9 fL (7.4-10.4); Monocytes # 0.4 10^3/uL (0.2-0.9); Monocytes % 8.5 %; Neutrophils # 2.86 10^3/uL (1.8-7.7); Neutrophils % 58.2 %; Nucleated Red Blood Cells % 0 %; Platelet Count 302 10^3/cmm (157-399); Red Blood Count 3.21 10^6/uL (3.85-5.65); Red Cell Distribution Width 14.9 % (12.1-15.1); White Blood Count 4.92 10^3/uL (3.29-11.43)
[2023-12-10 08:52] LABS: Alanine Aminotransferase 7 U/L (0-33); Alkaline Phosphatase 106 U/L (35-105); Anion Gap 16.7 (5-19); Aspartate Amino Transferase 17 U/L (0-32); Blood Urea Nitrogen 31 mg/dL (8-23); Calcium 9.3 mg/dL (8.5-10.5); Carbon Dioxide 25 mmol/L (22-29); Chloride 100 mmol/L (98-107); Creatinine Clr Calc Pharmacy 31.1211; Globulin 2.7 g/dL (1.3-4.6); Glucose 91 mg/dL (65-115); Osmolality Calculated 290 mOsm/kg (285-295); Potassium 4.7 mmol/L (3.5-5.1); Sodium 137 mmol/L (136-145); Total Bilirubin 0.3 mg/dL (0.15-1.2); Total Protein 6.7 g/dL (6.6-8.7)
[2023-12-10] MEDS: sodium chloride 0.9% 250 ML 75 ML IV (10:03)
[2023-12-10] MEDS: diphenhydrAMINE 50 mg/mL SDV 1mL IVP (10:03)
[2023-12-10] MEDS: acetaminophen 325 mg Tablet 650 MG PO (10:03)
[2023-12-10] MEDS: methylPREDNISolone sod succ 40 mg/mL INJ IVP (10:04)
[2023-12-10 10:35] VITALS: BP 94/65; PULSE 84; RESP 16; TEMP 36.2; O2SAT 100
[2023-12-10] MEDS: obinutuzumab 1,000 MG in sodium chloride 0.9% 250 ML 29 MG IV (10:35)
[2023-12-10 11:05] VITALS: BP 92/63; PULSE 73; RESP 16; TEMP 36.2; O2SAT 100
[2023-12-10 11:35] VITALS: BP 97/66; PULSE 72; RESP 16; TEMP 36.4; O2SAT 98
[2023-12-10 12:05] VITALS: BP 95/58; PULSE 70; RESP 16; TEMP 36.3; O2SAT 98
[2023-12-10 14:35] VITALS: BP 98/63; PULSE 83; O2SAT 98
== END 2023-12-10 23:59 | disposition home or self-care (01) ==
PROVIDERS: Nurse Practitioner Family; PCP Registered Nurse; Visit Provider Internal Medicine Medical Oncology
DX: Z53.9 Procedure and treatment not carried out, unspecified reason (principal); Z51.11 Encounter for antineoplastic chemotherapy; C91.10 Chronic lymphocytic leukemia of B-cell type not having achieved remission
CPT/HCPCS: 36415; 80053; 85025; 96375; 96413; 96415; 99214; J1200; J2919; J7050; J9301

== ENCOUNTER 2023-12-17 13:57 | Oncology outpatient (recurring) (ONCR) | payer MEDICARE, SELFPAY ==
[2023-12-17 14:52] LABS: Basophils % 0.4 %; Eosinophils % 0.8 %; Hematocrit 30.8 % (36-47); Lymphocytes # 1.9 10^3/uL (0.8-4.8); Lymphocytes % 38.4 %; Mean Corpuscular HGB Conc 33.4 g/dL (30-55); Mean Corpuscular Hemoglobin 33.9 pg (27-33); Mean Corpuscular Volume 101.3 fl (85-98); Mean Platelet Volume 9.5 fL (7.4-10.4); Monocytes # 0.4 10^3/uL (0.2-0.9); Monocytes % 8.3 %; Neutrophils # 2.55 10^3/uL (1.8-7.7); Neutrophils % 51.5 %; Nucleated Red Blood Cells % 0 %; Platelet Count 171 10^3/cmm (157-399); Red Blood Count 3.04 10^6/uL (3.85-5.65); Red Cell Distribution Width 15.3 % (12.1-15.1); White Blood Count 4.95 10^3/uL (3.29-11.43)
== END 2023-12-21 23:59 | disposition home or self-care (01) ==
LOC: ONCMED 13:57
PROVIDERS: PCP Registered Nurse; Visit Provider Internal Medicine Medical Oncology
DX: C91.10 Chronic lymphocytic leukemia of B-cell type not having achieved remission (principal)
CPT/HCPCS: 36415; 85025

== ENCOUNTER → 2023-12-29 09:54 | Outpatient (BNVA) | payer MEDICARE, SELFPAY | PROVIDERS: PCP Registered Nurse; Visit Provider Nurse Practitioner Family | DX: I10 Essential (primary) hypertension (principal); Z87.891 Personal history of nicotine dependence | CPT/HCPCS: 99213 ==

== ENCOUNTER 2024-01-07 07:45 | Oncology outpatient (recurring) (ONCR) | payer MEDICARE, SELFPAY ==
[2023-12-24 14:39] LABS: Basophils % 0.2 %; Eosinophils # 0.1 10^3/uL (0.0-0.8); Eosinophils % 1.6 %; Hematocrit 30.4 % (36-47); Lymphocytes # 1.9 10^3/uL (0.8-4.8); Lymphocytes % 43.5 %; Mean Corpuscular HGB Conc 35.2 g/dL (30-55); Mean Corpuscular Hemoglobin 33.6 pg (27-33); Mean Corpuscular Volume 95.6 fl (85-98); Mean Platelet Volume 10.2 fL (7.4-10.4); Monocytes # 0.5 10^3/uL (0.2-0.9); Monocytes % 12.3 %; Neutrophils # 1.81 10^3/uL (1.8-7.7); Neutrophils % 42.2 %; Nucleated Red Blood Cells % 0 %; Platelet Count 134 10^3/cmm (157-399); Red Blood Count 3.18 10^6/uL (3.85-5.65); Red Cell Distribution Width 14.5 % (12.1-15.1)
[2023-12-31 15:30] LABS: Basophils % 0.5 %; Eosinophils # 0.1 10^3/uL (0.0-0.8); Eosinophils % 1.8 %; Hematocrit 32.2 % (36-47); Lymphocytes # 1.9 10^3/uL (0.8-4.8); Lymphocytes % 48.4 %; Mean Corpuscular HGB Conc 34.8 g/dL (30-55); Mean Corpuscular Hemoglobin 34.5 pg (27-33); Mean Corpuscular Volume 99.1 fl (85-98); Mean Platelet Volume 9.6 fL (7.4-10.4); Monocytes # 0.4 10^3/uL (0.2-0.9); Monocytes % 10.6 %; Neutrophils # 1.53 10^3/uL (1.8-7.7); Neutrophils % 38.4 %; Nucleated Red Blood Cells % 0 %; Platelet Count 150 10^3/cmm (157-399); Red Blood Count 3.25 10^6/uL (3.85-5.65); White Blood Count 3.97 10^3/uL (3.29-11.43)
[2024-01-07 08:15] LABS: Basophils % 0.5 %; Eosinophils # 0.1 10^3/uL (0.0-0.8); Eosinophils % 1.8 %; Hematocrit 31.8 % (36-47); Lymphocytes # 1.6 10^3/uL (0.8-4.8); Lymphocytes % 41.2 %; Mean Corpuscular HGB Conc 35.2 g/dL (30-55); Mean Corpuscular Hemoglobin 34.1 pg (27-33); Monocytes # 0.4 10^3/uL (0.2-0.9); Monocytes % 10.8 %; Neutrophils # 1.72 10^3/uL (1.8-7.7); Neutrophils % 45.4 %; Nucleated Red Blood Cells % 0 %; Platelet Count 149 10^3/cmm (157-399); Red Blood Count 3.28 10^6/uL (3.85-5.65); Red Cell Distribution Width 13.5 % (12.1-15.1); White Blood Count 3.79 10^3/uL (3.29-11.43)
[2024-01-07 08:38] LABS: Alanine Aminotransferase 10 U/L (0-33); Albumin Level 4.3 g/dL (3.5-5.2); Alkaline Phosphatase 121 U/L (35-105); Anion Gap 12.9 (5-19); Aspartate Amino Transferase 18 U/L (0-32); Blood Urea Nitrogen 28 mg/dL (8-23); Calcium 9.5 mg/dL (8.5-10.5); Carbon Dioxide 29 mmol/L (22-29); Chloride 97 mmol/L (98-107); Globulin 2.5 g/dL (1.3-4.6); Glucose 96 mg/dL (65-115); Lactate Dehydrogenase 148 U/L (135-214); Osmolality Calculated 285 mOsm/kg (285-295); Potassium 3.9 mmol/L (3.5-5.1); Sodium 135 mmol/L (136-145); Total Bilirubin 0.3 mg/dL (0.15-1.2); Total Protein 6.8 g/dL (6.6-8.7)
[2024-01-07] MEDS: sodium chloride 0.9% 250 ML 75 ML IV (09:43)
[2024-01-07] MEDS: acetaminophen 325 mg Tablet 650 MG PO (09:47)
[2024-01-07] MEDS: methylPREDNISolone sod succ 40 mg/mL INJ IVP (09:48)
[2024-01-07] MEDS: diphenhydrAMINE 50 mg/mL SDV 1mL IVP (09:51)
[2024-01-07 10:43] VITALS: BP 125/73; PULSE 64; RESP 16; TEMP 35.9; O2SAT 98
[2024-01-07] MEDS: obinutuzumab 1,000 MG in sodium chloride 0.9% 250 ML 35 MG IV (10:43)
[2024-01-07 11:17] VITALS: BP 123/75; PULSE 63; RESP 16; TEMP 35.9; O2SAT 98
[2024-01-07 11:48] VITALS: BP 121/69; PULSE 61; RESP 16; TEMP 35.9; O2SAT 98
[2024-01-07 12:19] VITALS: BP 127/79; PULSE 67; RESP 16; TEMP 36.4; O2SAT 96
[2024-01-07 14:10] VITALS: BP 116/74; PULSE 78; RESP 17; TEMP 36.6; O2SAT 97
== END 2024-01-07 23:59 | disposition home or self-care (01) ==
PROVIDERS: PCP Registered Nurse; Visit Provider Internal Medicine Medical Oncology
DX: C91.10 Chronic lymphocytic leukemia of B-cell type not having achieved remission (principal); Z53.9 Procedure and treatment not carried out, unspecified reason; Z51.11 Encounter for antineoplastic chemotherapy; Z87.891 Personal history of nicotine dependence; Z90.49 Acquired absence of other specified parts of digestive tract; Z79.69 Long term (current) use of other immunomodulators and immunosuppressants; Z79.899 Other long term (current) drug therapy
CPT/HCPCS: 36415; 80053; 83615; 85025; 96375; 96413; 96415; 99214; J1200; J2919; J7050; J9301

== ENCOUNTER 2024-01-21 14:30 | Oncology outpatient (recurring) (ONCR) | payer MEDICARE, SELFPAY ==
[2024-01-14 14:15] LABS: Basophils % 0.2 %; Eosinophils % 0.7 %; Hematocrit 33.1 % (36-47); Lymphocytes # 2.1 10^3/uL (0.8-4.8); Lymphocytes % 38.6 %; Mean Corpuscular Hemoglobin 34.4 pg (27-33); Mean Corpuscular Volume 98.2 fl (85-98); Mean Platelet Volume 9.4 fL (7.4-10.4); Monocytes # 0.5 10^3/uL (0.2-0.9); Monocytes % 9.6 %; Neutrophils % 50.5 %; Nucleated Red Blood Cells % 0 %; Platelet Count 101 10^3/cmm (157-399); Red Blood Count 3.37 10^6/uL (3.85-5.65); Red Cell Distribution Width 13.2 % (12.1-15.1); White Blood Count 5.34 10^3/uL (3.29-11.43)
[2024-01-14 14:31] LABS: Alanine Aminotransferase 10 U/L (0-33); Albumin Level 4.1 g/dL (3.5-5.2); Alkaline Phosphatase 107 U/L (35-105); Anion Gap 14.7 (5-19); Aspartate Amino Transferase 15 U/L (0-32); Blood Urea Nitrogen 37 mg/dL (8-23); Calcium 9.1 mg/dL (8.5-10.5); Carbon Dioxide 26 mmol/L (22-29); Chloride 102 mmol/L (98-107); Globulin 2.4 g/dL (1.3-4.6); Glucose 104 mg/dL (65-115); Osmolality Calculated 297 mOsm/kg (285-295); Potassium 3.7 mmol/L (3.5-5.1); Sodium 139 mmol/L (136-145); Total Bilirubin 0.4 mg/dL (0.15-1.2); Total Protein 6.5 g/dL (6.6-8.7)
[2024-01-21 14:24] LABS: Basophils % 0.2 %; Eosinophils % 0.4 %; Hematocrit 31.2 % (36-47); Lymphocytes # 1.8 10^3/uL (0.8-4.8); Lymphocytes % 36.7 %; Mean Corpuscular HGB Conc 36.2 g/dL (30-55); Mean Corpuscular Volume 96.6 fl (85-98); Mean Platelet Volume 9.7 fL (7.4-10.4); Monocytes # 0.4 10^3/uL (0.2-0.9); Neutrophils # 2.66 10^3/uL (1.8-7.7); Neutrophils % 54.5 %; Nucleated Red Blood Cells % 0 %; Platelet Count 122 10^3/cmm (157-399); Red Blood Count 3.23 10^6/uL (3.85-5.65); Red Cell Distribution Width 12.7 % (12.1-15.1); White Blood Count 4.88 10^3/uL (3.29-11.43)
[2024-01-21 14:45] LABS: Alanine Aminotransferase 10 U/L (0-33); Albumin Level 4.2 g/dL (3.5-5.2); Alkaline Phosphatase 109 U/L (35-105); Anion Gap 15.7 (5-19); Aspartate Amino Transferase 17 U/L (0-32); Blood Urea Nitrogen 34 mg/dL (8-23); Calcium 9.3 mg/dL (8.5-10.5); Carbon Dioxide 27 mmol/L (22-29); Chloride 101 mmol/L (98-107); Globulin 2.5 g/dL (1.3-4.6); Glucose 101 mg/dL (65-115); Osmolality Calculated 298 mOsm/kg (285-295); Potassium 3.7 mmol/L (3.5-5.1); Sodium 140 mmol/L (136-145); Total Bilirubin 0.3 mg/dL (0.15-1.2); Total Protein 6.7 g/dL (6.6-8.7)
== END 2024-01-21 23:59 | disposition home or self-care (01) ==
PROVIDERS: Nurse Practitioner Family; PCP Registered Nurse; Visit Provider Internal Medicine Medical Oncology
DX: C91.10 Chronic lymphocytic leukemia of B-cell type not having achieved remission (principal); Z53.9 Procedure and treatment not carried out, unspecified reason
CPT/HCPCS: 36415; 80053; 85025

== ENCOUNTER 2024-02-04 08:30 | Oncology outpatient (recurring) (ONCR) | payer MEDICARE, SELFPAY ==
[2024-01-28 14:58] LABS: Basophils % 0.5 %; Hematocrit 33.3 % (36-47); Lymphocytes # 2.2 10^3/uL (0.8-4.8); Lymphocytes % 53.9 %; Mean Corpuscular HGB Conc 35.4 g/dL (30-55); Mean Corpuscular Hemoglobin 34.5 pg (27-33); Mean Corpuscular Volume 97.4 fl (85-98); Mean Platelet Volume 8.8 fL (7.4-10.4); Monocytes # 0.4 10^3/uL (0.2-0.9); Monocytes % 9.7 %; Neutrophils # 1.38 10^3/uL (1.8-7.7); Neutrophils % 34.4 %; Nucleated Red Blood Cells % 0 %; Platelet Count 169 10^3/cmm (157-399); Red Blood Count 3.42 10^6/uL (3.85-5.65); Red Cell Distribution Width 12.5 % (12.1-15.1); White Blood Count 4.01 10^3/uL (3.29-11.43)
[2024-01-28 15:13] LABS: Alanine Aminotransferase 10 U/L (0-33); Albumin Level 4.4 g/dL (3.5-5.2); Alkaline Phosphatase 124 U/L (35-105); Anion Gap 16.1 (5-19); Aspartate Amino Transferase 17 U/L (0-32); Blood Urea Nitrogen 23 mg/dL (8-23); Calcium 9.5 mg/dL (8.5-10.5); Carbon Dioxide 28 mmol/L (22-29); Chloride 99 mmol/L (98-107); Globulin 2.4 g/dL (1.3-4.6); Glucose 104 mg/dL (65-115); Osmolality Calculated 292 mOsm/kg (285-295); Potassium 4.1 mmol/L (3.5-5.1); Sodium 139 mmol/L (136-145); Total Bilirubin 0.3 mg/dL (0.15-1.2); Total Protein 6.8 g/dL (6.6-8.7)
[2024-02-04 08:42] LABS: Basophils % 0.3 %; Eosinophils % 0.7 %; Hematocrit 31.2 % (36-47); Lymphocytes # 1.4 10^3/uL (0.8-4.8); Lymphocytes % 47.2 %; Mean Corpuscular HGB Conc 36.2 g/dL (30-55); Mean Corpuscular Hemoglobin 34.6 pg (27-33); Mean Corpuscular Volume 95.4 fl (85-98); Mean Platelet Volume 9.7 fL (7.4-10.4); Monocytes # 0.5 10^3/uL (0.2-0.9); Monocytes % 16.1 %; Neutrophils # 1.07 10^3/uL (1.8-7.7); Nucleated Red Blood Cells % 0 %; Platelet Count 155 10^3/cmm (157-399); Red Blood Count 3.27 10^6/uL (3.85-5.65); Red Cell Distribution Width 12.5 % (12.1-15.1); White Blood Count 3.05 10^3/uL (3.29-11.43)
[2024-02-04 08:58] LABS: Alanine Aminotransferase 10 U/L (0-33); Albumin Level 4.3 g/dL (3.5-5.2); Alkaline Phosphatase 107 U/L (35-105); Anion Gap 20.1 (5-19); Aspartate Amino Transferase 18 U/L (0-32); Blood Urea Nitrogen 25 mg/dL (8-23); Calcium 9.1 mg/dL (8.5-10.5); Carbon Dioxide 23 mmol/L (22-29); Chloride 102 mmol/L (98-107); Globulin 2.4 g/dL (1.3-4.6); Glucose 107 mg/dL (65-115); Osmolality Calculated 299 mOsm/kg (285-295); Potassium 3.1 mmol/L (3.5-5.1); Sodium 142 mmol/L (136-145); Total Bilirubin 0.3 mg/dL (0.15-1.2); Total Protein 6.7 g/dL (6.6-8.7)
[2024-02-04] MEDS: diphenhydrAMINE 50 mg/mL SDV 1mL IVP (10:58)
[2024-02-04] MEDS: acetaminophen 325 mg Tablet 650 MG PO (10:58)
[2024-02-04] MEDS: sodium chloride 0.9% 250 ML IV (10:59)
[2024-02-04] MEDS: methylPREDNISolone sod succ 40 mg/mL INJ IVP (11:01)
[2024-02-04] MEDS: sodium chloride 0.9% 250 ML 75 ML IV (11:25)
[2024-02-04] MEDS: obinutuzumab 1,000 MG in sodium chloride 0.9% 250 ML 29 MG IV (11:42)
[2024-02-04 11:45] VITALS: BP 117/72; PULSE 87; RESP 16; TEMP 36.6; O2SAT 97
[2024-02-04 12:15] VITALS: BP 123/75; PULSE 97; RESP 16; TEMP 36.6; O2SAT 99
[2024-02-04 12:45] VITALS: BP 116/75; PULSE 92; RESP 16; TEMP 36.6; O2SAT 94
[2024-02-04 15:20] VITALS: BP 106/67; PULSE 84; RESP 16; TEMP 36.4; O2SAT 96
== END 2024-02-04 23:59 | disposition home or self-care (01) ==
PROVIDERS: Nurse Practitioner Family; PCP Registered Nurse; Visit Provider Internal Medicine Medical Oncology
DX: C91.10 Chronic lymphocytic leukemia of B-cell type not having achieved remission (principal); Z53.9 Procedure and treatment not carried out, unspecified reason; Z51.11 Encounter for antineoplastic chemotherapy; Z79.52 Long term (current) use of systemic steroids; Z79.69 Long term (current) use of other immunomodulators and immunosuppressants; Z79.899 Other long term (current) drug therapy; Z87.891 Personal history of nicotine dependence; E86.0 Dehydration
CPT/HCPCS: 36415; 80053; 85025; 96365; 96366; 96375; 96413; 99214; J1200; J2919; J7050; J9301

== ENCOUNTER 2024-02-18 15:00 | Oncology outpatient (recurring) (ONCR) | payer MEDICARE, SELFPAY ==
[2024-02-11 15:34] LABS: Eosinophils % 0.6 %; Lymphocytes % 62.8 %; Mean Corpuscular HGB Conc 35.7 g/dL (30-55); Mean Corpuscular Hemoglobin 34.3 pg (27-33); Mean Corpuscular Volume 96.2 fl (85-98); Mean Platelet Volume 9.7 fL (7.4-10.4); Monocytes # 0.7 10^3/uL (0.2-0.9); Monocytes % 20.9 %; Neutrophils % 13.8 %; Nucleated Red Blood Cells % 0 %; Platelet Count 120 10^3/cmm (157-399); Red Blood Count 3.12 10^6/uL (3.85-5.65); Red Cell Distribution Width 12.8 % (12.1-15.1)
[2024-02-11 16:14] LABS: Neutrophils # 0.44 10^3/uL (1.8-7.7)
[2024-02-18 15:20] LABS: Eosinophils % 0.8 %; Hematocrit 31.7 % (36-47); Lymphocytes # 1.8 10^3/uL (0.8-4.8); Lymphocytes % 66.3 %; Mean Corpuscular HGB Conc 34.1 g/dL (30-55); Mean Corpuscular Hemoglobin 34.4 pg (27-33); Mean Platelet Volume 9.4 fL (7.4-10.4); Monocytes # 0.6 10^3/uL (0.2-0.9); Monocytes % 23.1 %; Neutrophils % 9.4 %; Nucleated Red Blood Cells % 0 %; Platelet Count 160 10^3/cmm (157-399); Red Blood Count 3.14 10^6/uL (3.85-5.65); Red Cell Distribution Width 13.3 % (12.1-15.1); White Blood Count 2.64 10^3/uL (3.29-11.43)
[2024-02-18 15:28] LABS: Neutrophils # 0.25 10^3/uL (1.8-7.7)
== END 2024-02-21 23:59 | disposition home or self-care (01) ==
PROVIDERS: Nurse Practitioner Family; PCP Registered Nurse; Visit Provider Internal Medicine Medical Oncology
DX: C91.10 Chronic lymphocytic leukemia of B-cell type not having achieved remission (principal); Z53.9 Procedure and treatment not carried out, unspecified reason
CPT/HCPCS: 36415; 85025

== ENCOUNTER 2024-03-19 10:02 | Oncology outpatient (recurring) (ONCR) | payer MEDICARE, SELFPAY ==
[2024-02-25 15:24] LABS: Basophils % 0.5 %; Eosinophils % 0.8 %; Hematocrit 33.9 % (36-47); Lymphocytes # 1.7 10^3/uL (0.8-4.8); Lymphocytes % 45.2 %; Mean Corpuscular HGB Conc 34.8 g/dL (30-55); Mean Corpuscular Hemoglobin 34.7 pg (27-33); Mean Corpuscular Volume 99.7 fl (85-98); Mean Platelet Volume 9.5 fL (7.4-10.4); Monocytes # 0.7 10^3/uL (0.2-0.9); Neutrophils # 1.24 10^3/uL (1.8-7.7); Neutrophils % 33.2 %; Nucleated Red Blood Cells % 0 %; Platelet Count 117 10^3/cmm (157-399); Red Cell Distribution Width 12.8 % (12.1-15.1); White Blood Count 3.74 10^3/uL (3.29-11.43)
[2024-03-03 08:56] LABS: Basophils % 0.3 %; Eosinophils # 0.1 10^3/uL (0.0-0.8); Eosinophils % 1.9 %; Hematocrit 34.3 % (36-47); Lymphocytes # 1.3 10^3/uL (0.8-4.8); Lymphocytes % 36.5 %; Mean Corpuscular HGB Conc 34.7 g/dL (30-55); Mean Corpuscular Hemoglobin 34.2 pg (27-33); Mean Corpuscular Volume 98.6 fl (85-98); Monocytes # 0.3 10^3/uL (0.2-0.9); Monocytes % 9.4 %; Neutrophils # 1.87 10^3/uL (1.8-7.7); Neutrophils % 51.6 %; Nucleated Red Blood Cells % 0 %; Platelet Count 94 10^3/cmm (157-399); Red Blood Count 3.48 10^6/uL (3.85-5.65); Red Cell Distribution Width 12.6 % (12.1-15.1); White Blood Count 3.62 10^3/uL (3.29-11.43)
[2024-03-03 09:13] LABS: Alanine Aminotransferase 6 U/L (0-33); Albumin Level 4.1 g/dL (3.5-5.2); Alkaline Phosphatase 87 U/L (35-105); Anion Gap 14.5 (5-19); Aspartate Amino Transferase 17 U/L (0-32); Blood Urea Nitrogen 31 mg/dL (8-23); Calcium 8.7 mg/dL (8.5-10.5); Carbon Dioxide 27 mmol/L (22-29); Chloride 103 mmol/L (98-107); Glucose 92 mg/dL (65-115); Osmolality Calculated 298 mOsm/kg (285-295); Potassium 3.5 mmol/L (3.5-5.1); Sodium 141 mmol/L (136-145); Total Bilirubin 0.4 mg/dL (0.15-1.2); Total Protein 6.1 g/dL (6.6-8.7)
[2024-03-12 11:02] LABS: Basophils % 0.4 %; Eosinophils % 1.3 %; Hematocrit 32.2 % (36-47); Lymphocytes # 1.2 10^3/uL (0.8-4.8); Lymphocytes % 49.1 %; Mean Corpuscular HGB Conc 34.5 g/dL (30-55); Mean Corpuscular Hemoglobin 34.5 pg (27-33); Mean Platelet Volume 9.7 fL (7.4-10.4); Monocytes # 0.3 10^3/uL (0.2-0.9); Monocytes % 14.1 %; Neutrophils % 34.7 %; Nucleated Red Blood Cells % 0 %; Platelet Count 137 10^3/cmm (157-399); Red Blood Count 3.22 10^6/uL (3.85-5.65); Red Cell Distribution Width 11.9 % (12.1-15.1); White Blood Count 2.34 10^3/uL (3.29-11.43)
[2024-03-12 11:28] LABS: Alanine Aminotransferase 8 U/L (0-33); Albumin Level 4.1 g/dL (3.5-5.2); Alkaline Phosphatase 90 U/L (35-105); Aspartate Amino Transferase 17 U/L (0-32); Blood Urea Nitrogen 33 mg/dL (8-23); Carbon Dioxide 29 mmol/L (22-29); Chloride 105 mmol/L (98-107); Glucose 88 mg/dL (65-115); Lactate Dehydrogenase 193 U/L (135-214); Osmolality Calculated 303 mOsm/kg (285-295); Sodium 143 mmol/L (136-145); Total Bilirubin 0.3 mg/dL (0.15-1.2); Total Protein 6.1 g/dL (6.6-8.7)
[2024-03-12 11:30] LABS: Neutrophils # 0.81 10^3/uL (1.8-7.7)
[2024-03-12 11:32] LABS: Creatinine Clr Calc Pharmacy 39.8288
[2024-03-19 10:43] LABS: Basophils % 0.4 %; Eosinophils % 1.1 %; Hematocrit 31.3 % (36-47); Lymphocytes # 1.6 10^3/uL (0.8-4.8); Mean Corpuscular HGB Conc 35.1 g/dL (30-55); Mean Corpuscular Hemoglobin 34.3 pg (27-33); Mean Corpuscular Volume 97.5 fl (85-98); Mean Platelet Volume 9.2 fL (7.4-10.4); Monocytes # 0.5 10^3/uL (0.2-0.9); Monocytes % 16.8 %; Neutrophils % 22.7 %; Nucleated Red Blood Cells % 0 %; Platelet Count 149 10^3/cmm (157-399); Red Blood Count 3.21 10^6/uL (3.85-5.65); White Blood Count 2.68 10^3/uL (3.29-11.43)
[2024-03-19 11:01] LABS: Alanine Aminotransferase 9 U/L (0-33); Albumin Level 4.2 g/dL (3.5-5.2); Alkaline Phosphatase 93 U/L (35-105); Anion Gap 14.9 (5-19); Aspartate Amino Transferase 19 U/L (0-32); Blood Urea Nitrogen 31 mg/dL (8-23); Carbon Dioxide 25 mmol/L (22-29); Chloride 101 mmol/L (98-107); Creatinine Clr Calc Pharmacy 36.5097; Globulin 2.1 g/dL (1.3-4.6); Glucose 90 mg/dL (65-115); Lactate Dehydrogenase 173 U/L (135-214); Osmolality Calculated 290 mOsm/kg (285-295); Potassium 3.9 mmol/L (3.5-5.1); Sodium 137 mmol/L (136-145); Total Bilirubin 0.3 mg/dL (0.15-1.2); Total Protein 6.3 g/dL (6.6-8.7)
[2024-03-19 11:10] LABS: Neutrophils # 0.61 10^3/uL (1.8-7.7)
== END 2024-03-22 23:59 | disposition home or self-care (01) ==
PROVIDERS: Nurse Practitioner Family; PCP Registered Nurse; Visit Provider Internal Medicine Medical Oncology
DX: Z53.9 Procedure and treatment not carried out, unspecified reason (principal); C91.10 Chronic lymphocytic leukemia of B-cell type not having achieved remission
CPT/HCPCS: 36415; 80053; 83615; 85025; 99214

== ENCOUNTER 2024-04-21 11:00 | Oncology outpatient (recurring) (ONCR) | payer MEDICARE, SELFPAY ==
[2024-03-26 10:12] LABS: Basophils % 0.5 %; Eosinophils # 0.1 10^3/uL (0.0-0.8); Eosinophils % 1.8 %; Hematocrit 33.7 % (36-47); Lymphocytes # 1.8 10^3/uL (0.8-4.8); Mean Corpuscular Hemoglobin 33.6 pg (27-33); Mean Platelet Volume 9.2 fL (7.4-10.4); Monocytes # 0.5 10^3/uL (0.2-0.9); Monocytes % 12.6 %; Neutrophils # 1.53 10^3/uL (1.8-7.7); Neutrophils % 38.6 %; Nucleated Red Blood Cells % 0 %; Platelet Count 191 10^3/cmm (157-399); Red Blood Count 3.51 10^6/uL (3.85-5.65); Red Cell Distribution Width 12.1 % (12.1-15.1); White Blood Count 3.96 10^3/uL (3.29-11.43)
[2024-03-31 08:41] LABS: Basophils % 0.2 %; Eosinophils # 0.1 10^3/uL (0.0-0.8); Eosinophils % 2.4 %; Hematocrit 37.6 % (36-47); Lymphocytes # 1.5 10^3/uL (0.8-4.8); Lymphocytes % 35.3 %; Mean Corpuscular HGB Conc 34.8 g/dL (30-55); Mean Corpuscular Hemoglobin 33.9 pg (27-33); Mean Corpuscular Volume 97.2 fl (85-98); Mean Platelet Volume 9.3 fL (7.4-10.4); Monocytes # 0.4 10^3/uL (0.2-0.9); Monocytes % 10.4 %; Neutrophils # 2.11 10^3/uL (1.8-7.7); Nucleated Red Blood Cells % 0 %; Platelet Count 199 10^3/cmm (157-399); Red Blood Count 3.87 10^6/uL (3.85-5.65); Red Cell Distribution Width 12.2 % (12.1-15.1); White Blood Count 4.14 10^3/uL (3.29-11.43)
[2024-03-31 08:59] LABS: Alanine Aminotransferase 10 U/L (0-33); Albumin Level 4.3 g/dL (3.5-5.2); Alkaline Phosphatase 106 U/L (35-105); Anion Gap 14.1 (5-19); Aspartate Amino Transferase 18 U/L (0-32); Blood Urea Nitrogen 29 mg/dL (8-23); Calcium 9.1 mg/dL (8.5-10.5); Carbon Dioxide 26 mmol/L (22-29); Chloride 99 mmol/L (98-107); Globulin 2.6 g/dL (1.3-4.6); Glucose 97 mg/dL (65-115); Lactate Dehydrogenase 190 U/L (135-214); Osmolality Calculated 286 mOsm/kg (285-295); Potassium 4.1 mmol/L (3.5-5.1); Sodium 135 mmol/L (136-145); Total Bilirubin 0.3 mg/dL (0.15-1.2); Total Protein 6.9 g/dL (6.6-8.7)
[2024-03-31 09:02] LABS: Creatinine Clr Calc Pharmacy 33.4805
[2024-04-07 10:34] LABS: Basophils % 0.2 %; Eosinophils # 0.1 10^3/uL (0.0-0.8); Eosinophils % 2.4 %; Hematocrit 37.5 % (36-47); Lymphocytes # 0.7 10^3/uL (0.8-4.8); Lymphocytes % 16.5 %; Mean Corpuscular HGB Conc 34.4 g/dL (30-55); Mean Corpuscular Hemoglobin 33.2 pg (27-33); Mean Corpuscular Volume 96.4 fl (85-98); Mean Platelet Volume 9.6 fL (7.4-10.4); Monocytes # 0.4 10^3/uL (0.2-0.9); Monocytes % 9.8 %; Neutrophils # 2.92 10^3/uL (1.8-7.7); Neutrophils % 70.1 %; Nucleated Red Blood Cells % 0 %; Platelet Count 165 10^3/cmm (157-399); Red Blood Count 3.89 10^6/uL (3.85-5.65); Red Cell Distribution Width 12.2 % (12.1-15.1); White Blood Count 4.17 10^3/uL (3.29-11.43)
[2024-04-07 11:11] LABS: Alanine Aminotransferase 20 U/L (0-33); Albumin Level 4.3 g/dL (3.5-5.2); Alkaline Phosphatase 108 U/L (35-105); Anion Gap 14.2 (5-19); Aspartate Amino Transferase 25 U/L (0-32); Blood Urea Nitrogen 22 mg/dL (8-23); Calcium 8.6 mg/dL (8.5-10.5); Carbon Dioxide 25 mmol/L (22-29); Chloride 104 mmol/L (98-107); Creatinine Clr Calc Pharmacy 39.5679; Globulin 2.5 g/dL (1.3-4.6); Glucose 106 mg/dL (65-115); Osmolality Calculated 292 mOsm/kg (285-295); Potassium 4.2 mmol/L (3.5-5.1); Sodium 139 mmol/L (136-145); Total Bilirubin 0.3 mg/dL (0.15-1.2); Total Protein 6.8 g/dL (6.6-8.7)
[2024-04-14 11:01] LABS: Basophils % 0.4 %; Eosinophils # 0.1 10^3/uL (0.0-0.8); Eosinophils % 2.7 %; Hematocrit 31.3 % (36-47); Lymphocytes # 0.9 10^3/uL (0.8-4.8); Lymphocytes % 34.2 %; Mean Corpuscular HGB Conc 35.5 g/dL (30-55); Mean Corpuscular Hemoglobin 33.6 pg (27-33); Mean Corpuscular Volume 94.8 fl (85-98); Mean Platelet Volume 9.1 fL (7.4-10.4); Monocytes # 0.6 10^3/uL (0.2-0.9); Monocytes % 24.9 %; Neutrophils % 37.4 %; Nucleated Red Blood Cells % 0 %; Platelet Count 212 10^3/cmm (157-399); Red Cell Distribution Width 12.9 % (12.1-15.1); White Blood Count 2.57 10^3/uL (3.29-11.43)
[2024-04-14 11:05] LABS: Neutrophils # 0.96 10^3/uL (1.8-7.7)
[2024-04-14 11:13] LABS: Alanine Aminotransferase 32 U/L (0-33); Alkaline Phosphatase 102 U/L (35-105); Anion Gap 14.8 (5-19); Aspartate Amino Transferase 20 U/L (0-32); Blood Urea Nitrogen 26 mg/dL (8-23); Carbon Dioxide 22 mmol/L (22-29); Chloride 107 mmol/L (98-107); Creatinine Clr Calc Pharmacy 29.0164; Globulin 1.7 g/dL (1.3-4.6); Glucose 140 mg/dL (65-115); Osmolality Calculated 297 mOsm/kg (285-295); Potassium 3.8 mmol/L (3.5-5.1); Sodium 140 mmol/L (136-145); Total Bilirubin 0.3 mg/dL (0.15-1.2); Total Protein 5.7 g/dL (6.6-8.7)
[2024-04-21 10:50] LABS: Basophils % 0.3 %; Eosinophils % 0.6 %; Hematocrit 35.9 % (36-47); Lymphocytes # 1.8 10^3/uL (0.8-4.8); Lymphocytes % 53.9 %; Mean Corpuscular Hemoglobin 33.9 pg (27-33); Mean Corpuscular Volume 99.7 fl (85-98); Mean Platelet Volume 9.1 fL (7.4-10.4); Monocytes # 0.6 10^3/uL (0.2-0.9); Monocytes % 17.9 %; Nucleated Red Blood Cells % 0 %; Platelet Count 285 10^3/cmm (157-399); Red Cell Distribution Width 12.7 % (12.1-15.1); White Blood Count 3.36 10^3/uL (3.29-11.43)
[2024-04-21 11:11] LABS: Alanine Aminotransferase 16 U/L (0-33); Albumin Level 4.1 g/dL (3.5-5.2); Alkaline Phosphatase 98 U/L (35-105); Anion Gap 15.1 (5-19); Aspartate Amino Transferase 17 U/L (0-32); Blood Urea Nitrogen 24 mg/dL (8-23); Calcium 8.8 mg/dL (8.5-10.5); Carbon Dioxide 29 mmol/L (22-29); Chloride 99 mmol/L (98-107); Globulin 2.2 g/dL (1.3-4.6); Glucose 96 mg/dL (65-115); Osmolality Calculated 292 mOsm/kg (285-295); Potassium 4.1 mmol/L (3.5-5.1); Sodium 139 mmol/L (136-145); Total Bilirubin 0.2 mg/dL (0.15-1.2); Total Protein 6.3 g/dL (6.6-8.7)
[2024-04-21 11:12] LABS: Creatinine Clr Calc Pharmacy 29.0164
[2024-04-21 11:24] LABS: Neutrophils # 0.91 10^3/uL (1.8-7.7)
== END 2024-04-22 23:59 | disposition home or self-care (01) ==
PROVIDERS: Nurse Practitioner Family; PCP Registered Nurse; Visit Provider Internal Medicine Hematology & Oncology
DX: C91.10 Chronic lymphocytic leukemia of B-cell type not having achieved remission (principal); Z53.9 Procedure and treatment not carried out, unspecified reason
CPT/HCPCS: 36415; 80053; 83615; 85025; 99214

== ENCOUNTER 2024-05-19 10:30 | Oncology outpatient (recurring) (ONCR) | payer MEDICARE, SELFPAY ==
[2024-04-28 12:14] LABS: Basophils % 0.5 %; Eosinophils % 0.5 %; Hematocrit 35.7 % (36-47); Lymphocytes # 1.9 10^3/uL (0.8-4.8); Lymphocytes % 45.4 %; Mean Corpuscular HGB Conc 34.2 g/dL (30-55); Mean Corpuscular Hemoglobin 33.5 pg (27-33); Mean Corpuscular Volume 98.1 fl (85-98); Mean Platelet Volume 9.2 fL (7.4-10.4); Monocytes # 0.4 10^3/uL (0.2-0.9); Monocytes % 10.7 %; Neutrophils # 1.76 10^3/uL (1.8-7.7); Neutrophils % 42.7 %; Nucleated Red Blood Cells % 0 %; Platelet Count 214 10^3/cmm (157-399); Red Blood Count 3.64 10^6/uL (3.85-5.65); Red Cell Distribution Width 12.2 % (12.1-15.1); White Blood Count 4.12 10^3/uL (3.29-11.43)
[2024-04-28 12:27] LABS: Alanine Aminotransferase 13 U/L (0-33); Albumin Level 4.1 g/dL (3.5-5.2); Alkaline Phosphatase 95 U/L (35-105); Anion Gap 11.8 (5-19); Aspartate Amino Transferase 16 U/L (0-32); Blood Urea Nitrogen 15 mg/dL (8-23); Calcium 8.6 mg/dL (8.5-10.5); Carbon Dioxide 28 mmol/L (22-29); Chloride 102 mmol/L (98-107); Globulin 1.4 g/dL (1.3-4.6); Glucose 94 mg/dL (65-115); Osmolality Calculated 287 mOsm/kg (285-295); Potassium 3.8 mmol/L (3.5-5.1); Sodium 138 mmol/L (136-145); Total Bilirubin 0.2 mg/dL (0.15-1.2); Total Protein 5.5 g/dL (6.6-8.7)
[2024-04-28 12:29] LABS: Lactate Dehydrogenase 171 U/L (135-214)
[2024-05-05 10:31] LABS: Basophils % 0.2 %; Eosinophils # 0.1 10^3/uL (0.0-0.8); Eosinophils % 1.3 %; Hematocrit 34.9 % (36-47); Lymphocytes # 1.7 10^3/uL (0.8-4.8); Lymphocytes % 37.4 %; Mean Corpuscular HGB Conc 33.8 g/dL (30-55); Mean Corpuscular Hemoglobin 32.7 pg (27-33); Mean Corpuscular Volume 96.7 fl (85-98); Mean Platelet Volume 9.3 fL (7.4-10.4); Monocytes # 0.4 10^3/uL (0.2-0.9); Monocytes % 9.2 %; Neutrophils % 51.7 %; Nucleated Red Blood Cells % 0 %; Platelet Count 204 10^3/cmm (157-399); Red Blood Count 3.61 10^6/uL (3.85-5.65); Red Cell Distribution Width 12.2 % (12.1-15.1); White Blood Count 4.46 10^3/uL (3.29-11.43)
[2024-05-12 09:20] LABS: Basophils % 0.2 %; Eosinophils # 0.1 10^3/uL (0.0-0.8); Eosinophils % 1.9 %; Lymphocytes # 1.6 10^3/uL (0.8-4.8); Lymphocytes % 32.8 %; Mean Corpuscular HGB Conc 34.9 g/dL (30-55); Mean Corpuscular Hemoglobin 33.3 pg (27-33); Mean Corpuscular Volume 95.6 fl (85-98); Mean Platelet Volume 9.1 fL (7.4-10.4); Monocytes # 0.4 10^3/uL (0.2-0.9); Monocytes % 8.6 %; Neutrophils # 2.68 10^3/uL (1.8-7.7); Neutrophils % 56.1 %; Nucleated Red Blood Cells % 0 %; Platelet Count 205 10^3/cmm (157-399); Red Blood Count 3.66 10^6/uL (3.85-5.65); Red Cell Distribution Width 12.8 % (12.1-15.1); White Blood Count 4.78 10^3/uL (3.29-11.43)
[2024-05-12 09:47] LABS: Alanine Aminotransferase 10 U/L (0-33); Albumin Level 4.4 g/dL (3.5-5.2); Alkaline Phosphatase 109 U/L (35-105); Anion Gap 13.9 (5-19); Aspartate Amino Transferase 17 U/L (0-32); Blood Urea Nitrogen 18 mg/dL (8-23); Calcium 8.6 mg/dL (8.5-10.5); Carbon Dioxide 25 mmol/L (22-29); Chloride 105 mmol/L (98-107); Creatinine Clr Calc Pharmacy 48.0419; Globulin 1.9 g/dL (1.3-4.6); Glucose 105 mg/dL (65-115); Osmolality Calculated 292 mOsm/kg (285-295); Potassium 3.9 mmol/L (3.5-5.1); Sodium 140 mmol/L (136-145); Total Bilirubin 0.2 mg/dL (0.15-1.2); Total Protein 6.3 g/dL (6.6-8.7)
[2024-05-19 10:39] LABS: Basophils % 0.2 %; Eosinophils # 0.1 10^3/uL (0.0-0.8); Eosinophils % 1.3 %; Hematocrit 34.4 % (36-47); Lymphocytes # 1.4 10^3/uL (0.8-4.8); Lymphocytes % 30.5 %; Mean Corpuscular Hemoglobin 33.2 pg (27-33); Mean Corpuscular Volume 97.7 fl (85-98); Mean Platelet Volume 8.9 fL (7.4-10.4); Monocytes # 0.4 10^3/uL (0.2-0.9); Monocytes % 8.3 %; Neutrophils # 2.73 10^3/uL (1.8-7.7); Neutrophils % 59.5 %; Nucleated Red Blood Cells % 0 %; Platelet Count 195 10^3/cmm (157-399); Red Blood Count 3.52 10^6/uL (3.85-5.65); Red Cell Distribution Width 12.8 % (12.1-15.1); White Blood Count 4.59 10^3/uL (3.29-11.43)
[2024-05-19 11:15] LABS: Alanine Aminotransferase 10 U/L (0-33); Albumin Level 4.2 g/dL (3.5-5.2); Alkaline Phosphatase 100 U/L (35-105); Anion Gap 13.8 (5-19); Aspartate Amino Transferase 16 U/L (0-32); Blood Urea Nitrogen 20 mg/dL (8-23); Calcium 9.4 mg/dL (8.5-10.5); Carbon Dioxide 27 mmol/L (22-29); Chloride 103 mmol/L (98-107); Globulin 1.7 g/dL (1.3-4.6); Glucose 109 mg/dL (65-115); Lactate Dehydrogenase 164 U/L (135-214); Osmolality Calculated 293 mOsm/kg (285-295); Potassium 3.8 mmol/L (3.5-5.1); Sodium 140 mmol/L (136-145); Total Bilirubin 0.3 mg/dL (0.15-1.2); Total Protein 5.9 g/dL (6.6-8.7); Uric Acid 7.5 mg/dL (2.4-5.7)
== END 2024-05-22 23:59 | disposition home or self-care (01) ==
PROVIDERS: Internal Medicine Medical Oncology; Nurse Practitioner Family; PCP Registered Nurse; Visit Provider Internal Medicine Hematology & Oncology
DX: C91.10 Chronic lymphocytic leukemia of B-cell type not having achieved remission (principal); Z53.9 Procedure and treatment not carried out, unspecified reason
CPT/HCPCS: 36415; 80053; 83615; 84550; 85025; 99214

== ENCOUNTER 2024-06-22 11:45 | Oncology outpatient (recurring) (ONCR) | payer MEDICARE, SELFPAY ==
[2024-05-26 09:52] LABS: Basophils % 0.2 %; Eosinophils # 0.1 10^3/uL (0.0-0.8); Eosinophils % 1.2 %; Hematocrit 32.9 % (36-47); Lymphocytes # 1.3 10^3/uL (0.8-4.8); Lymphocytes % 32.8 %; Mean Corpuscular HGB Conc 34.7 g/dL (30-55); Mean Corpuscular Hemoglobin 32.9 pg (27-33); Mean Corpuscular Volume 94.8 fl (85-98); Monocytes # 0.4 10^3/uL (0.2-0.9); Monocytes % 10.1 %; Neutrophils # 2.25 10^3/uL (1.8-7.7); Neutrophils % 55.5 %; Nucleated Red Blood Cells % 0 %; Platelet Count 226 10^3/cmm (157-399); Red Blood Count 3.47 10^6/uL (3.85-5.65); Red Cell Distribution Width 13.2 % (12.1-15.1); White Blood Count 4.06 10^3/uL (3.29-11.43)
[2024-05-26 10:10] LABS: Alanine Aminotransferase 12 U/L (0-33); Albumin Level 4.1 g/dL (3.5-5.2); Alkaline Phosphatase 104 U/L (35-105); Anion Gap 14.5 (5-19); Aspartate Amino Transferase 18 U/L (0-32); Blood Urea Nitrogen 16 mg/dL (8-23); Calcium 8.7 mg/dL (8.5-10.5); Carbon Dioxide 25 mmol/L (22-29); Chloride 102 mmol/L (98-107); Creatinine Clr Calc Pharmacy 54.0471; Globulin 1.7 g/dL (1.3-4.6); Glucose 146 mg/dL (65-115); Osmolality Calculated 290 mOsm/kg (285-295); Potassium 3.5 mmol/L (3.5-5.1); Sodium 138 mmol/L (136-145); Total Bilirubin 0.3 mg/dL (0.15-1.2); Total Protein 5.8 g/dL (6.6-8.7)
[2024-06-09 12:01] LABS: Basophils % 0.4 %; Eosinophils # 0.1 10^3/uL (0.0-0.8); Eosinophils % 1.6 %; Hematocrit 35.8 % (36-47); Lymphocytes # 2.1 10^3/uL (0.8-4.8); Mean Corpuscular HGB Conc 34.4 g/dL (30-55); Mean Corpuscular Hemoglobin 33.4 pg (27-33); Mean Corpuscular Volume 97.3 fl (85-98); Mean Platelet Volume 9.5 fL (7.4-10.4); Monocytes # 0.6 10^3/uL (0.2-0.9); Monocytes % 11.9 %; Neutrophils # 2.22 10^3/uL (1.8-7.7); Neutrophils % 43.9 %; Nucleated Red Blood Cells % 0 %; Platelet Count 225 10^3/cmm (157-399); Red Blood Count 3.68 10^6/uL (3.85-5.65); Red Cell Distribution Width 12.7 % (12.1-15.1); White Blood Count 5.05 10^3/uL (3.29-11.43)
[2024-06-09 12:23] LABS: Alanine Aminotransferase 10 U/L (0-33); Albumin Level 4.1 g/dL (3.5-5.2); Alkaline Phosphatase 111 U/L (35-105); Anion Gap 16.4 (5-19); Aspartate Amino Transferase 19 U/L (0-32); Blood Urea Nitrogen 27 mg/dL (8-23); Calcium 9.3 mg/dL (8.5-10.5); Carbon Dioxide 28 mmol/L (22-29); Chloride 98 mmol/L (98-107); Creatinine Clr Calc Pharmacy 39.4373; Globulin 2.2 g/dL (1.3-4.6); Glucose 84 mg/dL (65-115); Osmolality Calculated 292 mOsm/kg (285-295); Potassium 3.4 mmol/L (3.5-5.1); Sodium 139 mmol/L (136-145); Total Bilirubin 0.2 mg/dL (0.15-1.2); Total Protein 6.3 g/dL (6.6-8.7)
[2024-06-22 12:07] LABS: Basophils % 0.2 %; Eosinophils # 0.1 10^3/uL (0.0-0.8); Eosinophils % 1.9 %; Lymphocytes # 1.6 10^3/uL (0.8-4.8); Lymphocytes % 37.4 %; Mean Corpuscular HGB Conc 34.3 g/dL (30-55); Mean Corpuscular Hemoglobin 32.9 pg (27-33); Mean Corpuscular Volume 95.9 fl (85-98); Mean Platelet Volume 9.2 fL (7.4-10.4); Monocytes # 0.4 10^3/uL (0.2-0.9); Monocytes % 9.8 %; Neutrophils % 50.5 %; Nucleated Red Blood Cells % 0 %; Platelet Count 241 10^3/cmm (157-399); Red Blood Count 3.65 10^6/uL (3.85-5.65); Red Cell Distribution Width 12.4 % (12.1-15.1); White Blood Count 4.17 10^3/uL (3.29-11.43)
[2024-06-22 12:24] LABS: Alanine Aminotransferase 16 U/L (0-33); Albumin Level 4.2 g/dL (3.5-5.2); Alkaline Phosphatase 118 U/L (35-105); Anion Gap 16.6 (5-19); Aspartate Amino Transferase 22 U/L (0-32); Blood Urea Nitrogen 24 mg/dL (8-23); Calcium 9.2 mg/dL (8.5-10.5); Carbon Dioxide 26 mmol/L (22-29); Chloride 101 mmol/L (98-107); Globulin 2.3 g/dL (1.3-4.6); Glucose 98 mg/dL (65-115); Osmolality Calculated 292 mOsm/kg (285-295); Potassium 4.6 mmol/L (3.5-5.1); Sodium 139 mmol/L (136-145); Total Bilirubin 0.3 mg/dL (0.15-1.2); Total Protein 6.5 g/dL (6.6-8.7)
== END 2024-06-22 23:59 | disposition home or self-care (01) ==
PROVIDERS: Internal Medicine Hematology & Oncology; Internal Medicine Medical Oncology; PCP Registered Nurse; Visit Provider Internal Medicine
DX: C91.10 Chronic lymphocytic leukemia of B-cell type not having achieved remission (principal); Z53.9 Procedure and treatment not carried out, unspecified reason
CPT/HCPCS: 36415; 80053; 85025; 99214

== ENCOUNTER → 2024-08-12 12:26 | Outpatient (BNVA) | payer MEDICARE, SELFPAY | PROVIDERS: PCP Registered Nurse; Visit Provider Internal Medicine | DX: C91.10 Chronic lymphocytic leukemia of B-cell type not having achieved remission (principal); I10 Essential (primary) hypertension; Z87.891 Personal history of nicotine dependence; R00.2 Palpitations | CPT/HCPCS: 99213 ==

== ENCOUNTER 2024-08-16 10:49 | Oncology outpatient (recurring) (ONCR) | payer MEDICARE, SELFPAY ==
[2024-08-16 11:05] LABS: Basophils % 0.4 %; Eosinophils % 0.9 %; Hematocrit 34.5 % (36-47); Lymphocytes % 44.9 %; Mean Corpuscular HGB Conc 34.2 g/dL (30-55); Mean Corpuscular Hemoglobin 32.6 pg (27-33); Mean Corpuscular Volume 95.3 fl (85-98); Mean Platelet Volume 8.7 fL (7.4-10.4); Monocytes # 0.6 10^3/uL (0.2-0.9); Monocytes % 13.4 %; Neutrophils # 1.73 10^3/uL (1.8-7.7); Neutrophils % 38.6 %; Nucleated Red Blood Cells % 0 %; Platelet Count 209 10^3/cmm (157-399); Red Blood Count 3.62 10^6/uL (3.85-5.65); Red Cell Distribution Width 12.8 % (12.1-15.1); White Blood Count 4.48 10^3/uL (3.29-11.43)
[2024-08-16 11:27] LABS: Alanine Aminotransferase 9 U/L (0-33); Albumin Level 4.4 g/dL (3.5-5.2); Alkaline Phosphatase 108 U/L (35-105); Anion Gap 14.2 (5-19); Aspartate Amino Transferase 16 U/L (0-32); Blood Urea Nitrogen 29 mg/dL (8-23); Calcium 9.2 mg/dL (8.5-10.5); Carbon Dioxide 26 mmol/L (22-29); Chloride 105 mmol/L (98-107); Glucose 96 mg/dL (65-115); Osmolality Calculated 298 mOsm/kg (285-295); Potassium 4.2 mmol/L (3.5-5.1); Sodium 141 mmol/L (136-145); Total Bilirubin 0.3 mg/dL (0.15-1.2); Total Protein 6.4 g/dL (6.6-8.7)
== END 2024-08-20 23:59 | disposition home or self-care (01) ==
PROVIDERS: Internal Medicine Medical Oncology; PCP Registered Nurse; Visit Provider Internal Medicine
DX: C91.10 Chronic lymphocytic leukemia of B-cell type not having achieved remission (principal); Z87.891 Personal history of nicotine dependence; D70.9 Neutropenia, unspecified; Z79.69 Long term (current) use of other immunomodulators and immunosuppressants
CPT/HCPCS: 36415; 80053; 85025; 99213

== ENCOUNTER 2024-10-11 12:05 | Oncology outpatient (recurring) (ONCR) | payer MEDICARE, SELFPAY ==
[2024-10-11 12:38] LABS: Basophils % 0.2 %; Eosinophils # 0.1 10^3/uL (0.0-0.8); Eosinophils % 2.4 %; Hematocrit 33.7 % (36-47); Lymphocytes # 1.8 10^3/uL (0.8-4.8); Lymphocytes % 30.5 %; Mean Corpuscular HGB Conc 34.7 g/dL (30-55); Mean Corpuscular Hemoglobin 33.2 pg (27-33); Mean Corpuscular Volume 95.7 fl (85-98); Mean Platelet Volume 9.2 fL (7.4-10.4); Monocytes # 0.6 10^3/uL (0.2-0.9); Monocytes % 9.6 %; Neutrophils # 3.32 10^3/uL (1.8-7.7); Neutrophils % 57.1 %; Nucleated Red Blood Cells % 0 %; Platelet Count 228 10^3/cmm (157-399); Red Blood Count 3.52 10^6/uL (3.85-5.65); Red Cell Distribution Width 12.7 % (12.1-15.1); White Blood Count 5.81 10^3/uL (3.29-11.43)
[2024-10-11 12:58] LABS: Alanine Aminotransferase 8 U/L (0-33); Albumin Level 4.4 g/dL (3.5-5.2); Alkaline Phosphatase 94 U/L (35-105); Anion Gap 16.2 (5-19); Aspartate Amino Transferase 13 U/L (0-32); Blood Urea Nitrogen 33 mg/dL (8-23); Calcium 8.8 mg/dL (8.5-10.5); Carbon Dioxide 26 mmol/L (22-29); Chloride 97 mmol/L (98-107); Creatinine Clr Calc Pharmacy 30.7261; Globulin 2.3 g/dL (1.3-4.6); Glucose 117 mg/dL (65-115); Osmolality Calculated 288 mOsm/kg (285-295); Potassium 4.2 mmol/L (3.5-5.1); Sodium 135 mmol/L (136-145); Total Bilirubin 0.2 mg/dL (0.15-1.2); Total Protein 6.7 g/dL (6.6-8.7)
== END 2024-10-20 23:59 | disposition home or self-care (01) ==
LOC: ONCMED 12:06
PROVIDERS: Nurse Practitioner Family; PCP Registered Nurse; Visit Provider Internal Medicine
DX: C91.10 Chronic lymphocytic leukemia of B-cell type not having achieved remission (principal); Z87.891 Personal history of nicotine dependence; D64.9 Anemia, unspecified
CPT/HCPCS: 36415; 80053; 85025; 99214